=== PATIENT | female | born 1965 | race Caucasian/White ===

== ENCOUNTER 2017-03-05 06:01 | Emergency (ER) | payer OTHER ==
[~2017-03-05] VITALS: Ht 167.6 cm; Wt 72.0 kg
[2017-03-05] MEDS ORDERED: SODIUM CHLOR 0.9% 1000 ML INJ 1,000 ML IV ONE ×2 (06:17→07:30)
[2017-03-05 06:18] VITALS: BP 124/65; PULSE 79; RESP 16; TEMP 98.2; O2SAT 100
[2017-03-05] MEDS ORDERED: ONDANSETRON HCL 4 MG/2 ML VIAL IVP ONE (06:30)
[2017-03-05] MEDS ORDERED: SODIUM CHLORIDE 0.9% FLUSH 10 ML FLUSH IVF PRN (06:30)
--- NOTE | 2017-03-05 06:32 | PD ---
HPI Chief Complaint: Fall Time Seen by Provider: 06:17 Travel History International Travel<30 days: No Contact w/Intl Traveler<30days: No Traveled to known affect area: No History of Present Illness HPI 52-year-old female patient with history of recent evaluation for abdominal bloating, scheduled for colonoscopy this morning, has been taking laxatives and was post to take GoLYTELY this morning, has been having nausea, vomiting, and diarrhea multiple times last night, this morning had an apparent syncopal episode hitting her head on the tile. She is not sure what happened. She called EMS. She complains of headache, but denies any vomiting, chest pains, shortness of breath, or other symptoms. When EMS arrived, they noted that on her counter she had written several goodbye notes and a will. They had considered [place] acting her but Police Department decided not to. On further questioning of the issue, patient states that she simply was trying to be a good mother, wanted to make sure that her will was in order and her personal business was in order before she went for the procedure. She denies any suicide or homicidal ideation. According to EMS , she appears somewhat somnolent but she is currently awake and oriented. She denies any ingestions. Modifying Factors: None Associated Signs & Symptoms: Nausea, vomiting, diarrhea, abdominal bloating, syncope, possible head injury Risk Factors: None PFSH Past Medical History Immunizations Current: Yes Tetanus Vaccination: Unknown Influenza Vaccination: No ?: Unknown Social History Alcohol Use: No Tobacco Use: No Substance Use: No Allergies-Medications (Allergen,Severity, Reaction): Coded Allergies: No Known Allergies (Verified Allergy, Unknown, 03/05/17) Reported Meds & Prescriptions Reported Meds & Active Scripts Active No Active Prescriptions or Reported Medications Review of Systems Except as stated in HPI: all other systems reviewed are Neg Physical Exam Narrative GENERAL: Well-developed middle age white female patient currently in mild distress. Awake, alert, oriented 3. SKIN: Focused skin assessment warm/dry. HEAD: Atraumatic. Normocephalic. EYES: Pupils equal and round. No scleral icterus. No injection or drainage. ENT: No nasal bleeding or discharge. Mucous membranes pink and moist. NECK: Trachea midline. No JVD. In c-collar. CARDIOVASCULAR: Regular rate and rhythm. No murmur appreciated. RESPIRATORY: No accessory muscle use. Clear to auscultation. Breath sounds equal bilaterally. GASTROINTESTINAL: Abdomen soft, non-tender, nondistended. Hepatic and splenic margins not palpable. MUSCULOSKELETAL: No obvious deformities. No clubbing. No cyanosis. No edema. NEUROLOGICAL: Awake and alert. No obvious cranial nerve deficits. Motor grossly within normal limits. Normal speech. PSYCHIATRIC: Appropriate mood and affect; insight and judgment normal. Data Data Last Documented VS Vital Signs Date Time Temp Pulse Resp B/P (MAP) Pulse Ox O2 Delivery O2 Flow Rate FiO2 03/05/17 06:58 16 03/05/17 06:18 98.2 79 124/65 (84) 100 Orders Orders Electrocardiogram (03/05/17 06:17) Complete Blood Count With Diff (03/05/17 06:17) Comprehensive Metabolic Panel (03/05/17 06:17) Magnesium (Mg) (03/05/17 06:17) Ckmb (Isoenzyme) Profile (03/05/17 06:17) Troponin I (03/05/17 06:17) Act Partial Throm Time (Ptt) (03/05/17 06:17) Prothrombin Time / Inr (Pt) (03/05/17 06:17) Urinalysis - C+S If Indicated (03/05/17 06:17) Chest, Single Ap (03/05/17 06:17) Ct Brain W/O Iv Contrast(Rout) (03/05/17 06:17) Ct Cerv Spine W/O Contrast (03/05/17 06:17) Blood Glucose (03/05/17 06:17) Ecg Monitoring (03/05/17 06:17) Iv Access Insert/Monitor (03/05/17 06:17) Oximetry (03/05/17 06:17) Ondansetron Inj (Zofran Inj) (03/05/17 06:30) Sodium Chloride 0.9% Flush (Ns Flush) (03/05/17 06:30) Sodium Chlor 0.9% 1000 Ml Inj (Ns 1000 M (03/05/17 06:17) Drug Screen, Random Urine (03/05/17 06:17) Alcohol (Ethanol) (03/05/17 06:17) Remove Cervical Collar (03/05/17 06:50) Orthostatic Vital Signs (03/05/17 07:00) Labs Laboratory Tests Test 03/05/17 06:50 [facility] Medical Decision Making Medical Screen Exam Complete: Yes Emergency Medical Condition: Yes Medical Record Reviewed: Yes Differential Diagnosis Syncope, nausea, vomiting, diarrhea: dehydration versus metabolic issues versus gastroenteritis versus medication effect versus dysrhythmias Narrative Course Patient denies any suicidal ideation and states that she simply was trying to get her paperwork in order and her wishes in order before the procedure. Lab work, CAT scan of the brain and C-spine, was ordered for the patient for further evaluation. IV fluids given in the ER. Physician Communication Physician Communication Case is signed out to oncoming physician, Dr. Figueroa, at 7 AM pending workup. Disposition based on workup. Diagnosis Primary Impression: Syncope Additional Impression: Nausea vomiting and diarrhea Scripts No Active Prescriptions or Reported Meds Condition: Stable Elli Samano MD Mar 05, 2017 06:32
--- NOTE | 2017-03-05 06:42 | RADRPT ---
EXAM DATE/TIME: 03/05/2017 06:33 [facility] COMPARISON: No previous studies available for comparison. INDICATIONS : Trauma, fall. RADIATION DOSE: 31.78 CTDIvol (mGy) MEDICAL HISTORY : None SURGICAL HISTORY : None. ENCOUNTER: Initial ACUITY: 1 day PAIN SCALE: 1/10 LOCATION: cranial TECHNIQUE: Multiple contiguous axial images were obtained of the head. Using automated exposure control and adj ustment of the mA and/or kV according to patient size, radiation dose was kept as low as reasonably a chievable to obtain optimal diagnostic quality images. DICOM format image data is available electro nically for review and comparison. FINDINGS: CEREBRUM: The ventricles are normal. No evidence of midline shift, mass lesion, hemorrhage or acute infarction . No extra-axial fluid collections are seen. POSTERIOR FOSSA: The cerebellum and brainstem are intact. The 4th ventricle is midline. The cerebellopontine angle i s unremarkable. EXTRACRANIAL: The visualized portion of the orbits is intact. SKULL: The calvaria is intact. No evidence of skull fracture. CONCLUSION: No acute abnormality is identified. Igor Seals MD on March 05, 2017 at 6:39 Board Certified Radiologist. This report was verified electronically.
--- NOTE | 2017-03-05 06:47 | RADRPT ---
EXAM DATE/TIME: 03/05/2017 06:33 [facility] COMPARISON: No previous studies available for comparison. INDICATIONS : Trauma, fall. RADIATION DOSE: 19.36 CTDIvol (mGy) MEDICAL HISTORY : None SURGICAL HISTORY : None. ENCOUNTER: Initial ACUITY: 1 day PAIN SCALE: 1/10 LOCATION: neck TECHNIQUE: Volumetric scanning of the cervical spine was performed. Multiplanar reconstructions in the sagittal, coronal and oblique axial planes were performed. Using automated exposure control and adjustment o f the mA and/or kV according to patient size, radiation dose was kept as low as reasonably achievable to obtain optimal diagnostic quality images. DICOM format image data is available electronically f or review and comparison. FINDINGS: There is normal sagittal spine alignment of the cervical spine. No anterolisthesis or retrolisthesis is present. The atlantoaxial relationship is within normal limits. There is no prevertebral soft tiss ue swelling present. No fracture or dislocation is identified. There is degenerative disc disease at C5-C6 and C6-C7. There is a 17 mm hypodense left thyroid nodule. Otherwise, the visualized portions of the posterior f sam, paraspinous soft tissues, and upper lung zones demonstrate no acute abnormality. CONCLUSION: 1. No acute cervical spine abnormality is identified. There is degenerative disc disease at C5-C6 and C6-C7. 2. There is a 17 mm left thyroid nodule. Consider followup elective thyroid ultrasound for further ch aracterization when patient condition permits. Igor Seals MD on March 05, 2017 at 6:43 Board Certified Radiologist. This report was verified electronically.
--- NOTE | 2017-03-05 06:56 | RADRPT ---
EXAM DATE/TIME: 03/05/2017 06:42 [facility] COMPARISON: No previous studies available for comparison. INDICATIONS : Chest pain with nausea and vomiting MEDICAL HISTORY : None. SURGICAL HISTORY : None. ENCOUNTER: Initial ACUITY: 1 day PAIN SCORE: 5/10 LOCATION: Bilateral chest FINDINGS: Portable AP view of the chest demonstrates a normal-sized cardiac silhouette. No effusion, consolidat ion, or pneumothorax is visualized. The bones and soft tissues demonstrate no acute abnormality. Ther e is a linear density overlying the left inferior hemithorax that is of uncertain etiology. CONCLUSION: No acute finding is identified. Igor Seals MD on March 05, 2017 at 6:53 Board Certified Radiologist. This report was verified electronically.
[2017-03-05 06:58] VITALS: RESP 16
--- NOTE | 2017-03-05 07:09 | PD ---
Physical Exam Date Seen by Provider: Mar 05, 2017 Time Seen by Provider: 07:08 Narrative The patient is a 52-year-old female was initially evaluated by the previous physician. Please refer to the initial history, physical, diagnostic evaluation , and treatment modality plan. The patient was signed out at 7 AM laboratory evaluation pending. Data Data Last Documented VS Vital Signs Date Time Temp Pulse Resp B/P (MAP) Pulse Ox O2 Delivery O2 Flow Rate FiO2 03/05/17 07:28 72 115/65 (82) 83 121/69 (86) 92 133/78 (96) 03/05/17 06:58 16 03/05/17 06:18 98.2 100 Orders Orders Electrocardiogram (03/05/17 06:17) Complete Blood Count With Diff (03/05/17 06:17) Comprehensive Metabolic Panel (03/05/17 06:17) Magnesium (Mg) (03/05/17 06:17) Ckmb (Isoenzyme) Profile (03/05/17 06:17) Troponin I (03/05/17 06:17) Act Partial Throm Time (Ptt) (03/05/17 06:17) Prothrombin Time / Inr (Pt) (03/05/17 06:17) Urinalysis - C+S If Indicated (03/05/17 06:17) Chest, Single Ap (03/05/17 06:17) Ct Brain W/O Iv Contrast(Rout) (03/05/17 06:17) Ct Cerv Spine W/O Contrast (03/05/17 06:17) Blood Glucose (03/05/17 06:17) Ecg Monitoring (03/05/17 06:17) Iv Access Insert/Monitor (03/05/17 06:17) Oximetry (03/05/17 06:17) Ondansetron Inj (Zofran Inj) (03/05/17 06:30) Sodium Chloride 0.9% Flush (Ns Flush) (03/05/17 06:30) Sodium Chlor 0.9% 1000 Ml Inj (Ns 1000 M (03/05/17 06:17) Drug Screen, Random Urine (03/05/17 06:17) Alcohol (Ethanol) (03/05/17 06:17) Remove Cervical Collar (03/05/17 06:50) Orthostatic Vital Signs (03/05/17 07:00) Sodium Chlor 0.9% 1000 Ml Inj (Ns 1000 M (03/05/17 07:30) Labs Laboratory Tests Test 03/05/17 06:50 03/05/17 07:18 White Blood Count 10.4 TH/MM3 Red Blood Count 4.73 MIL/MM3 Hemoglobin 13.7 GM/DL Hematocrit 40.8 % Mean Corpuscular Volume 86.3 FL Mean Corpuscular Hemoglobin 28.9 PG Mean Corpuscular Hemoglobin Concent 33.5 % Red Cell Distribution Width 13.6 % Platelet Count 245 TH/MM3 Mean Platelet Volume 7.9 FL Neutrophils (%) (Auto) 87.2 % Lymphocytes (%) (Auto) 7.9 % Monocytes (%) (Auto) 4.1 % Eosinophils (%) (Auto) 0.4 % Basophils (%) (Auto) 0.4 % Neutrophils # (Auto) 9.1 TH/MM3 Lymphocytes # (Auto) 0.8 TH/MM3 Monocytes # (Auto) 0.4 TH/MM3 Eosinophils # (Auto) 0.0 TH/MM3 Basophils # (Auto) 0.0 TH/MM3 CBC Comment DIFF FINAL Differential Comment Prothrombin Time 11.4 SEC Prothromb Time International Ratio 1.0 RATIO Activated Partial Thromboplast Time 22.8 SEC Blood Urea Nitrogen 10 MG/DL Creatinine 0.60 MG/DL Random Glucose 111 MG/DL Total Protein 8.0 GM/DL Albumin 3.7 GM/DL Calcium Level 9.0 MG/DL Magnesium Level 2.5 MG/DL Alkaline Phosphatase 75 U/L Aspartate Amino Transf (AST/SGOT) 22 U/L Alanine Aminotransferase (ALT/SGPT) 25 U/L Total Bilirubin 0.5 MG/DL Sodium Level 139 MEQ/L Potassium Level 3.7 MEQ/L Chloride Level 105 MEQ/L Carbon Dioxide Level 23.9 MEQ/L Anion Gap 10 MEQ/L Estimat Glomerular Filtration Rate 104 ML/MIN Total Creatine Kinase 36 U/L Troponin I LESS THAN 0.02 NG/ML Ethyl Alcohol Level LESS THAN 3 MG/DL Urine Color RED Urine Turbidity HAZY Urine pH 5.5 Urine Specific [place] 1.024 Urine Protein 30 mg/dL Urine Glucose (UA) TRACE mg/dL Urine Ketones 10 mg/dL Urine Occult Blood LARGE Urine Nitrite NEG Urine Bilirubin NEG Urine Urobilinogen LESS THAN 2.0 MG/DL Urine Leukocyte Esterase SMALL Urine RBC 16 /hpf Urine WBC 7 /hpf Urine Squamous Epithelial Cells 1 /hpf Urine Bacteria RARE /hpf Urine Hyaline Casts 10 /lpf Urine Mucus MANY /lpf Microscopic Urinalysis Comment CULT NOT INDICATED MDM Medical Record Reviewed: Yes Supervised Visit with ARISTIDES: No Interpretation(s) Last Impressions Head CT 03/05/17616 Signed Impressions: Service Date/Time: Sunday, March 05, 2017 06:33 - CONCLUSION: No acute abnormality is identified. Igor Seals MD Chest X-Ray 03/05/17616 Signed Impressions: Service Date/Time: Sunday, March 05, 2017 06:42 - CONCLUSION: No acute finding is identified. Igor Seals MD Cervical Spine CT 03/05/17616 Signed Impressions: Service Date/Time: Sunday, March 05, 2017 06:33 - CONCLUSION: 1. No acute cervical spine abnormality is identified. There is degenerative disc disease at C5-C6 and C6-C7. 2. There is a 17 mm left thyroid nodule. Consider followup elective thyroid ultrasound for further characterization when patient condition permits. Igor Seals MD Laboratory Tests Test 03/05/17 06:50 03/05/17 07:18 White Blood Count 10.4 TH/MM3 Red Blood Count 4.73 MIL/MM3 Hemoglobin 13.7 GM/DL Hematocrit 40.8 % Mean Corpuscular Volume 86.3 FL Mean Corpuscular Hemoglobin 28.9 PG Mean Corpuscular Hemoglobin Concent 33.5 % Red Cell Distribution Width 13.6 % Platelet Count 245 TH/MM3 Mean Platelet Volume 7.9 FL Neutrophils (%) (Auto) 87.2 % Lymphocytes (%) (Auto) 7.9 % Monocytes (%) (Auto) 4.1 % Eosinophils (%) (Auto) 0.4 % Basophils (%) (Auto) 0.4 % Neutrophils # (Auto) 9.1 TH/MM3 Lymphocytes # (Auto) 0.8 TH/MM3 Monocytes # (Auto) 0.4 TH/MM3 Eosinophils # (Auto) 0.0 TH/MM3 Basophils # (Auto) 0.0 TH/MM3 CBC Comment DIFF FINAL Differential Comment Prothrombin Time 11.4 SEC Prothromb Time International Ratio 1.0 RATIO Activated Partial Thromboplast Time 22.8 SEC Blood Urea Nitrogen 10 MG/DL Creatinine 0.60 MG/DL Random Glucose 111 MG/DL Total Protein 8.0 GM/DL Albumin 3.7 GM/DL Calcium Level 9.0 MG/DL Magnesium Level 2.5 MG/DL Alkaline Phosphatase 75 U/L Aspartate Amino Transf (AST/SGOT) 22 U/L Alanine Aminotransferase (ALT/SGPT) 25 U/L Total Bilirubin 0.5 MG/DL Sodium Level 139 MEQ/L Potassium Level 3.7 MEQ/L Chloride Level 105 MEQ/L Carbon Dioxide Level 23.9 MEQ/L Anion Gap 10 MEQ/L Estimat Glomerular Filtration Rate 104 ML/MIN Total Creatine Kinase 36 U/L Troponin I LESS THAN 0.02 NG/ML Ethyl Alcohol Level LESS THAN 3 MG/DL Urine Color RED Urine Turbidity HAZY Urine pH 5.5 Urine Specific [place] 1.024 Urine Protein 30 mg/dL Urine Glucose (UA) TRACE mg/dL Urine Ketones 10 mg/dL Urine Occult Blood LARGE Urine Nitrite NEG Urine Bilirubin NEG Urine Urobilinogen LESS THAN 2.0 MG/DL Urine Leukocyte Esterase SMALL Urine RBC 16 /hpf Urine WBC 7 /hpf Urine Squamous Epithelial Cells 1 /hpf Urine Bacteria RARE /hpf Urine Hyaline Casts 10 /lpf Urine Mucus MANY /lpf Microscopic Urinalysis Comment CULT NOT INDICATED Differential Diagnosis Differential diagnosis includes orthostatic hypotension, dehydration, electrolyte abnormality, vasovagal syncope, arrhythmia, gastroenteritis, acute kidney injury. Narrative Course The patient was initially evaluated by the previous physician. Please refer to initial history, physical, diagnostic evaluation, and treatment modality plan. The patient was signed out at 7 AM laboratory evaluation pending. The patient states that she drank 2 bottles of laxative and took 2 suppositories, however, was unable to do the 2 enemas for her prep. The patient states she was to undergo colonoscopy by Dr. Bernard today. The patient's orthostatic vital signs were unremarkable. Urine did look concentrated, therefore, the patient was administered a second liter of IV fluids. CT the cervical spine was negative for fracture, therefore, the cervical collar was removed. The patient' s labs were noted, 10 ketones and UA, moderate blood, otherwise unremarkable. Therefore, I'll call was placed to the patient's supervisor rolling room at 7:54 AM. I discussed the patient with Dr. Medley who stated he will call the office and they will try to fit the patient in to have the colonoscopy done today. The patient will be discharged with a friend who will drive her to the outpatient endoscopy Center. This patient is stable for outpatient follow-up. Diagnosis Primary Impression: Syncope Qualified Codes: R55 - Syncope and collapse Additional Impression: Nausea vomiting and diarrhea Patient Instructions: General Instructions Additional Instruction: Please provide the patient a copy of her labs at discharge. Follow-up with the gastroenterology center today for your colonoscopy. Return if symptoms worsen or progress. Med/Other Pt SpecificInfo: No Change to Meds Scripts No Active Prescriptions or Reported Meds Disposition: 01 DISCHARGE HOME Condition: Stable Enrike Figueroa MD Mar 05, 2017 07:09
[2017-03-05 07:15] LABS: APTT (PATIENT) 22.8 SEC (24.3-30.1); PROTHROMBIN TIME - PATIENT 11.4 SEC (9.8-11.6)
[2017-03-05 07:16] LABS: AUTOMATED NEUTROPHIL # 9.1 TH/MM3 (1.8-7.7); BASOPHIL % 0.4 % (0.0-2.0); EOSINOPHIL % 0.4 % (0.0-4.0); HEMATOCRIT 40.8 % (35.0-46.0); HEMO FLAGS DIFF FINAL; LYMPH % 7.9 % (9.0-44.0); LYMPHOCYTE # 0.8 TH/MM3 (1.0-4.8); MEAN CELL VOLUME 86.3 FL (80.0-100.0); MEAN CORPUSCULAR HEMOGLOBIN 28.9 PG (27.0-34.0); MEAN CORPUSCULAR HGB CONC 33.5 % (32.0-36.0); MONO % 4.1 % (0.0-8.0); NEUT % 87.2 % (16.0-70.0); PLATELET COUNT 245 TH/MM3 (150-450); RED BLOOD COUNT 4.73 MIL/MM3 (4.00-5.30); RED CELL DISTRIBUTION WIDTH 13.6 % (11.6-17.2); WHITE BLOOD COUNT 10.4 TH/MM3 (4.0-11.0)
[2017-03-05 07:28] VITALS: BP_SYST 115; BP_SYST 121; BP_SYST 133; BP_DIAS 65; BP_DIAS 69; BP_DIAS 78
[2017-03-05 07:31] LABS: ALT (GPT) 25 U/L (10-53); ANION GAP 10 MEQ/L (5-15); AST (GOT) 22 U/L (15-37); BICARBONATE 23.9 MEQ/L (21.0-32.0); BLOOD UREA NITROGEN 10 MG/DL (7-18); CHLORIDE 105 MEQ/L (98-107); GLOMERULAR FILTRATION RATE 104 ML/MIN (>89); MAGNESIUM 2.5 MG/DL (1.5-2.5); POTASSIUM 3.7 MEQ/L (3.5-5.1); SODIUM (NA) 139 MEQ/L (136-145)
[2017-03-05 07:35] LABS: ALKALINE PHOSPHATASE 75 U/L (45-117); TOTAL BILIRUBIN ADULT 0.5 MG/DL (0.2-1.0)
[2017-03-05 07:48] LABS: ALCOHOL LESS THAN 3 MG/DL (0-5); CREATINE KINASE 36 U/L (26-192)
[2017-03-05 07:49] LABS: BACTERIA, URINE RARE /hpf; BLOOD, URINE LARGE (NEG); COMMENT (UR) CULT NOT INDICATED; CULTURE IF INDICATED CULT NOT INDICATED; GLUCOSE,URINE TRACE mg/dL (NEG); HYALINE CAST, URINE 10 /lpf (RARE); KETONE, URINE 10 mg/dL (NEG); MUCUS URINE MANY /lpf (OCC); NITRITE,URINE NEG (NEG); PH, URINE 5.5 (5.0-8.5); SQUAMOUS EPITHELIAL CELL URINE 1 /hpf (0-5)
[2017-03-05 07:50] LABS: URINE COLOR RED (YELLW/STRAW)
[2017-03-05 08:51] VITALS: BP 133/78
--- NOTE | 2017-03-05 15:08 | EKG ---
Date Performed: 03/05/2017 Time Performed: 06:50:19 PTAGE: 52 years EKG: Sinus rhythm NORMAL ECG NO PREVIOUS TRACING DOCTOR: Zbigniew Hernandez Interpretating Date/Time 03/05/2017 15:06:22
== END 2017-03-05 08:53 | disposition home or self-care (01) ==
LOC: NEPC 06:01
DX: R55 Syncope and collapse (principal); R11.2 Nausea with vomiting, unspecified; R19.7 Diarrhea, unspecified; R14.0 Abdominal distension (gaseous); R51 Headache
CPT/HCPCS: 70450; 71010; 72125; 80053; 80307; 81001; 82550; 83735; 84484; 85025; 85610; 85730; 93005; 96361; 96374; 99285; J2405; J7030

== ENCOUNTER 2017-03-08 12:16 | Inpatient (IN) | payer OTHER ==
[~2017-03-08] VITALS: Ht 160 cm; Wt 86.8 kg
[2017-03-08 12:30] VITALS: BP 127/80; PULSE 77; RESP 19; TEMP 96.4; O2SAT 99
[2017-03-08] MEDS ORDERED: SODIUM CHLORIDE 0.9% FLUSH 10 ML FLUSH IV FLUSH PRN (13:00)
[2017-03-08] MEDS ORDERED: NALOXONE HCL 0.4 MG/ML AMP IV PRN (13:00)
[2017-03-08] MEDS ORDERED: MAGNESIUM HYDROXIDE SUSP 30 ML CUP PO PRN (13:00)
[2017-03-08] MEDS ORDERED: ONDANSETRON HCL 4 MG/2 ML VIAL IVP PRN (13:00)
[2017-03-08] MEDS ORDERED: ACETAMINOPHEN 325 MG TAB PO PRN (13:00)
[2017-03-08] MEDS ORDERED: METR500T10 PO ×2 (13:28)
[2017-03-08] MEDS ORDERED: PANT40TA3 PO ×2 (13:29)
--- NOTE | 2017-03-08 13:55 | RADRPT ---
EXAM DATE/TIME: 03/08/2017 13:09 [facility] COMPARISON: CHEST SINGLE AP, March 05, 2017, 6:42. INDICATIONS : Short of breath. MEDICAL HISTORY : None. SURGICAL HISTORY : None. ENCOUNTER: Initial ACUITY: 1 day PAIN SCORE: 0/10 LOCATION: Bilateral cranial FINDINGS: A single view of the chest demonstrates the lungs to be symmetrically aerated without evidence of mas s, infiltrate or effusion. The cardiomediastinal contours are unremarkable. Osseous structures are intact. CONCLUSION: No acute disease. Jerardo Swanson MD on March 08, 2017 at 13:53 Board Certified Radiologist. This report was verified electronically.
[2017-03-08] MEDS: 1/2 NS + KCL 20 MEQ INJ 1,000 ML IV SCH (14:43)
--- NOTE | 2017-03-08 15:07 | RADRPT ---
EXAM DATE/TIME: 03/08/2017 13:02 [facility] COMPARISON: No previous studies available for comparison. INDICATIONS : Obstruction. MEDICAL HISTORY : Colon cancer neoplasm just found. endoscopy and colonoscopy SURGICAL HISTORY : partial hysterectomy ENCOUNTER: Initial ACUITY: 1 day PAIN SCORE: 8/10 LOCATION: Bilateral abdomen FINDINGS: Supine views of the abdomen were performed. The abdominal bowel gas pattern is normal. No abnormal masses, calcifications, or organomegaly is seen. The osseous structures are unremarkable. CONCLUSION: Normal bowel gas pattern. Kameron Abdi Jr., MD on March 08, 2017 at 15:04 Board Certified Radiologist. This report was verified electronically.
[2017-03-08] MEDS ORDERED: TRAM50TA PO ×2 (15:10)
[2017-03-08] MEDS ORDERED: MAGNESIUM CITRATE SOLN 300 ML BTL PO ONE ×2 (15:15→16:15)
[2017-03-08 16:00] VITALS: BP 100/60; PULSE 64; RESP 18; TEMP 97.7; O2SAT 94
--- NOTE | 2017-03-08 16:16 | HHI.HP ---
HPI Service [facility] Primary Care Physician Dr. Igor Bhandari Admission Diagnosis Obstructing colon mass Chief Complaint: Abdominal distension and nausea Travel History International Travel<30 Days: No Contact w/Intl Traveler <30 Da: No Traveled to Known Affected Are: No History of Present Illness Mrs. Leonard is a pleasant 52 y/o female who was recently diagnosed with adenocarcinoma of the colon. Pt had been having increasing abdominal pain, bloating/distension and some rectal bleeding for about a week. She was seen by her PCP last week and was sent for imaging studies. Pt was started on Flagyl for a presumed gastroenteritis per the patient. She was then referred to Gastroenterology who evaluated the patient with EGD/colonoscopy on 03/05/17 which noted acute gastritis and 5cm x 5cm circumferential abnormal mucosa was found at the splenic flexure, the mucosa was congested, edematous, erythematous , friable, and oozing blood. Pathology with invasive moderately differentiated colonic adenocarcinoma. Pt was then sent to see General Surgery and was evaluated by today. She states that since the colonoscopy she has had persistent bloating, abdominal pain and nausea. She has not had any BMs since the colonoscopy but has passed some bloody mucous. She has not had any vomiting or fevers. She denies any chest pain, SOB, dizziness, weakness, or palpitations. She had a KUB at admission which noted a normal bowel gas pattern. Review of Systems Constitutional: DENIES: Fever, Chills Eyes: DENIES: Vision loss Respiratory: DENIES: Shortness of breath Cardiovascular: DENIES: Chest pain, Palpitations, Lower Extremity Edema Gastrointestinal: COMPLAINS OF: Abdominal pain, Bloody stools, Nausea, See HPI , DENIES: Vomiting Genitourinary: DENIES: Urinary frequency, Hematuria Musculoskeletal: DENIES: Neck pain Integumentary: DENIES: Rash Neurologic: DENIES: Headache Psychiatric: DENIES: Confusion Past Family Social History Past Medical History Adenocarcinoma of the colon Gastritis Thyroid disorder unspecified, recently diagnosed and not currently on any medication Past Surgical History EGD/colonoscopy 03/05/17 --> Acute gastritis and 5cm x 5cm circumferential abnormal mucosa was found at the splenic flexure, the mucosa was congested, edematous, erythematous, friable, and oozing blood. Pathology with invasive moderately differentiated colonic adenocarcinoma. Partial hysterectomy Reported Medications Tramadol (Tramadol HCl) 50 Mg Tab 50 Mg PO Q12HR PRN Pantoprazole (Pantoprazole Sodium) 40 Mg Tab 40 Mg PO DAILY Metronidazole 500 Mg Tab 500 Mg PO TID Allergies: Coded Allergies: No Known Allergies (Verified Allergy, Unknown, 03/05/17) Family History No family hx of GI related malignancy Social History Remote hx of tobacco use, smoked for about 3-4 years sporadically and quit over 30 years ago Denies any regular alcohol use Pt works as a server manager at a local [employer] Physical Exam Vital Signs Vital Signs Date Time Temp Pulse Resp B/P (MAP) Pulse Ox O2 Delivery O2 Flow Rate FiO2 03/08/17 12:30 96.4 77 19 127/80 (96) 99 Physical Exam GENERAL: This is a well-nourished, well-developed patient, in no apparent distress. SKIN: No rashes, ecchymoses or lesions. Cool and dry. HEENT: Atraumatic. Normocephalic. No temporal or scalp tenderness. No scleral icterus. Airway patent. NECK: Trachea midline, supple, nontender. CARDIO: Regular. RESP: CTA bilaterally. No wheezes, rales, or rhonchi. ABD: Minimal BS, distended, diffusely tender. EXT: Extremities without clubbing, cyanosis, or edema. NEURO: Awake and alert. Motor and sensory grossly within normal limits. Normal speech. Laboratory Laboratory Tests Test 03/08/17 15:47 White Blood Count 5.2 TH/MM3 Red Blood Count 4.19 MIL/MM3 Hemoglobin 12.0 GM/DL Hematocrit 36.4 % Mean Corpuscular Volume 86.8 FL Mean Corpuscular Hemoglobin 28.7 PG Mean Corpuscular Hemoglobin Concent 33.1 % Red Cell Distribution Width 13.6 % Platelet Count 223 TH/MM3 Mean Platelet Volume 8.2 FL Neutrophils (%) (Auto) 65.9 % Lymphocytes (%) (Auto) 26.2 % Monocytes (%) (Auto) 6.4 % Eosinophils (%) (Auto) 1.1 % Basophils (%) (Auto) 0.4 % Neutrophils # (Auto) 3.5 TH/MM3 Lymphocytes # (Auto) 1.4 TH/MM3 Monocytes # (Auto) 0.3 TH/MM3 Eosinophils # (Auto) 0.1 TH/MM3 Basophils # (Auto) 0.0 TH/MM3 CBC Comment DIFF FINAL Differential Comment Imaging Last Impressions Chest X-Ray 03/08/17 1255 Signed Impressions: Service Date/Time: February 13:09 - CONCLUSION: No acute disease. Jerardo Swanson MD Abdomen X-Ray 03/08/17 0000 Signed Impressions: Service Date/Time: , March 08, 2017 13:02 - CONCLUSION: Normal bowel gas pattern. Kameron Abdi Jr., MD Septic Shock Reassessment Heart: Regular rate and rhythm Lungs: Clear Skin: Warm Caprini VTE Risk Assessment Caprini VTE Risk Assessment: No/Low Risk (score <= 1) Caprini Risk Assessment Model Point Value = 1 Point Value = 2 Point Value = 3 Point Value = 5 Age 41-60 Minor surgery BMI > 25 kg/m2 Swollen legs Varicose veins or History of unexplained or recurrent spontaneous Oral contraceptives or hormone replacement Sepsis (< 1 month) Serious lung disease, including pneumonia (< 1 month) Abnormal pulmonary function Acute myocardial infarction Congestive heart failure (< 1 month) History of inflammatory bowel disease Medical patient at bed rest Age 61-74 Arthroscopic surgery Major open surgery (> 45 min) Laparoscopic surgery (> 45 min) Malignancy Confined to bed (> 72 hours) Immobilizing plaster cast Central venous access Age >= 75 History of VTE Family history of VTE Factor V Leiden Prothrombin [id number] Lupus anticoagulant Anticardiolipin antibodies Elevated serum homocysteine Heparin-induced thrombocytopenia Other congenital or acquired thrombophilia Stroke (< 1 month) Elective arthroplasty Hip, pelvis, or leg fracture Acute spinal cord injury (< 1 month) Prophylaxis Regimen Total Risk Factor Score Risk Level Prophylaxis Regimen 0-1 Low Early ambulation 2 Moderate Order ONE of the following: *Sequential Compression Device (SCD) *Heparin 5000 units SQ BID 3-4 Higher Order ONE of the following medications: *Heparin 5000 units SQ TID *Enoxaparin/Lovenox 40 mg SQ daily (WT < 150 kg, CrCl > 30 mL/min) *Enoxaparin/Lovenox 30 mg SQ daily (WT < 150 kg, CrCl > 10-29 mL/min) *Enoxaparin/Lovenox 30 mg SQ BID (WT < 150 kg, CrCl > 30 mL/min) AND/OR *Sequential Compression Device (SCD) 5 or more Highest Order ONE of the following medications: *Heparin 5000 units SQ TID (Preferred with Epidurals) *Enoxaparin/Lovenox 40 mg SQ daily (WT < 150 kg, CrCl > 30 mL/min) *Enoxaparin/Lovenox 30 mg SQ daily (WT < 150 kg, CrCl > 10-29 mL/min) *Enoxaparin/Lovenox 30 mg SQ BID (WT < 150 kg, CrCl > 30 mL/min) AND *Sequential Compression Device (SCD) Assessment and Plan Problem List: (1) Adenocarcinoma of colon ICD Codes: C18.9 - Malignant neoplasm of colon, unspecified Status: Acute Plan: - Pt is a 52 y/o female who was recently diagnosed with adenocarcinoma of the colon. - She had been having increasing abdominal pain, bloating/distension and some rectal bleeding for about a week. She was referred to Gastroenterology who evaluated the patient with EGD/colonoscopy on 03/05/17 which noted acute gastritis and 5cm x 5cm circumferential abnormal mucosa was found at the splenic flexure, the mucosa was congested, edematous, erythematous, friable, and oozing blood. Pathology with invasive moderately differentiated colonic adenocarcinoma. - Pt was then sent to see General Surgery and was evaluated by Dr. Castañeda today. - She has had persistent bloating, abdominal pain and nausea. She has not had any BMs since the colonoscopy but has passed some bloody mucous. - Pt was admitted for surgical intervention with General Surgery which is planned tentatively for tomorrow. - Zofran PRN - KUB at admission which noted a normal bowel gas pattern. - Pain control PRN - NPO after MN - Supportive Care - DVT prophylaxis Assessment and Plan Patient examined. Assessment and plan formulated with Giana Nicholson PA-C. I agree with the above. Physician Certification 2 Midnight Certification Type: Admission for Inpatient Services Order for Inpatient Services The services are ordered in accordance with Medicare regulations or non- Medicare payer requirements, as applicable. In the case of services not specified as inpatient-only, they are appropriately provided as inpatient services in accordance with the 2-midnight benchmark. Estimated LOS (days): 3 3 days is the estimated time the patient will need to remain in the hospital, assuming treatment plan goals are met and no additional complications. Post-Hospital Plan: Home Giana Nicholson Mar 08, 2017 16:16 Honorio Saenz DO Mar 10, 2017 22:41
[2017-03-08] MEDS ORDERED: HYDROmorphone HCL PF 1 MG/ML VIAL IV PUSH PRN (17:00)
[2017-03-08] MEDS ORDERED: ACETAMINOPHEN/HYDROcodone 325 MG/5 MG TAB PO PRN (17:00)
[2017-03-08] MEDS ORDERED: LORazepam 2 MG/ML VIAL IV PUSH PRN (17:00)
[2017-03-08 17:04] LABS: AUTOMATED NEUTROPHIL # 3.5 TH/MM3 (1.8-7.7); BASOPHIL % 0.4 % (0.0-2.0); EOSINOPHIL # 0.1 TH/MM3 (0-0.4); EOSINOPHIL % 1.1 % (0.0-4.0); HEMATOCRIT 36.4 % (35.0-46.0); HEMO FLAGS DIFF FINAL; LYMPH % 26.2 % (9.0-44.0); LYMPHOCYTE # 1.4 TH/MM3 (1.0-4.8); MEAN CELL VOLUME 86.8 FL (80.0-100.0); MEAN CORPUSCULAR HEMOGLOBIN 28.7 PG (27.0-34.0); MEAN CORPUSCULAR HGB CONC 33.1 % (32.0-36.0); MONO % 6.4 % (0.0-8.0); NEUT % 65.9 % (16.0-70.0); PLATELET COUNT 223 TH/MM3 (150-450); RED BLOOD COUNT 4.19 MIL/MM3 (4.00-5.30); RED CELL DISTRIBUTION WIDTH 13.6 % (11.6-17.2); WHITE BLOOD COUNT 5.2 TH/MM3 (4.0-11.0)
[2017-03-08] MEDS ORDERED: ONDANSETRON HCL 4 MG/2 ML VIAL IV PRN (17:30)
[2017-03-08 17:32] LABS: BICARBONATE 28.2 MEQ/L (21.0-32.0); MAGNESIUM 2.3 MG/DL (1.5-2.5); POTASSIUM 3.6 MEQ/L (3.5-5.1)
[2017-03-08 20:00] VITALS: BP 111/59; PULSE 72; RESP 20; TEMP 98.7; O2SAT 98
[2017-03-08] MEDS: SODIUM CHLORIDE 0.9% FLUSH 10 ML FLUSH IV FLUSH SCH (20:26)
[2017-03-08 23:33] VITALS: BP 113/58; PULSE 73; RESP 19; TEMP 97.8; O2SAT 97
[2017-03-09] VITALS (7 sets, daily range): BP systolic 73–113; BP diastolic 44–62; PULSE 66–84; RESP 11–20; TEMP 95.8–97.6; O2SAT 95–100
[2017-03-09] MEDS: 1/2 NS + KCL 20 MEQ INJ 1,000 ML IV SCH ×2 (00:55→12:50)
[2017-03-09] MEDS ORDERED: SODIUM CHLOR 0.9% 1000 ML INJ 1,000 ML IV ONE (03:15)
[2017-03-09 03:57] LABS: BICARBONATE 24.3 MEQ/L (21.0-32.0); POTASSIUM 3.9 MEQ/L (3.5-5.1)
[2017-03-09 05:33] LABS: BASOPHIL # 0.1 TH/MM3 (0-0.2); BASOPHIL % 1.9 % (0.0-2.0); EOSINOPHIL % 0.9 % (0.0-4.0); HEMATOCRIT 34.4 % (35.0-46.0); HEMO FLAGS DIFF FINAL; LYMPH % 19.2 % (9.0-44.0); LYMPHOCYTE # 1.1 TH/MM3 (1.0-4.8); MEAN CELL VOLUME 86.9 FL (80.0-100.0); MEAN CORPUSCULAR HEMOGLOBIN 29.3 PG (27.0-34.0); MEAN CORPUSCULAR HGB CONC 33.7 % (32.0-36.0); MONO % 7.1 % (0.0-8.0); NEUT % 70.9 % (16.0-70.0); PLATELET COUNT 210 TH/MM3 (150-450); RED BLOOD COUNT 3.96 MIL/MM3 (4.00-5.30); RED CELL DISTRIBUTION WIDTH 13.2 % (11.6-17.2); WHITE BLOOD COUNT 5.6 TH/MM3 (4.0-11.0)
[2017-03-09] MEDS: SODIUM CHLORIDE 0.9% FLUSH 10 ML FLUSH IV FLUSH SCH ×2 (09:00→20:06)
[2017-03-09] MEDS ORDERED: BUPIVACAINE LIPOSOME PF 1.3% 20 ML VIAL ONE (09:06)
[2017-03-09] MEDS ORDERED: DEXAMETHASONE SOD PHOS PF 10 MG/ML VIAL IV ONE (09:06)
[2017-03-09] MEDS ORDERED: MIDAZOLAM HCL 2 MG/2 ML VIAL ONE (11:21)
[2017-03-09] MEDS ORDERED: DEXAMETHASONE SOD PHOS 4 MG/ML VIAL ONE (11:21)
[2017-03-09] MEDS ORDERED: APREPITANT 40 MG CAP ONE (11:48)
[2017-03-09] MEDS ORDERED: LEVOFLOXACIN 500 MG PREMIX INJ 100 ML IV ONE (11:51)
[2017-03-09] MEDS ORDERED: metroNIDAZOLE 500 MG INJ 100 ML IV ONE (11:51)
[2017-03-09] MEDS ORDERED: NEOSTIGMINE 3 MG/3 ML SYR IV ONE (12:00)
[2017-03-09] MEDS ORDERED: BUPIVACAINE LIPOSOME PF 1.3% 20 ML VIAL NERV BLOCK ONE (12:00)
[2017-03-09] MEDS ORDERED: PHENYLEPH/NS 1000 MCG/10 ML SYR IV ONE (12:00)
[2017-03-09] MEDS ORDERED: LACTATED RINGER'S 1000 ML INJ 1,000 ML IV ONE (12:00)
[2017-03-09] MEDS ORDERED: ePHEDrine/NS 25 MG/5 ML SYR IV ONE (12:00)
[2017-03-09] MEDS ORDERED: ONDANSETRON HCL 4 MG/2 ML VIAL IV PUSH ONE (12:00)
[2017-03-09] MEDS ORDERED: PROPOFOL 200 MG/20 ML AMP IV ONE (12:00)
[2017-03-09] MEDS ORDERED: METHYLENE BLUE 10 MG/ML VIAL ONE (13:36)
[2017-03-09] MEDS ORDERED: DO NOT ADM ANY ANTICOAGULANT DRUGS PRN (15:10)
[2017-03-09] MEDS: D5-1/2 NS + KCL 20 MEQ INJ 1,000 ML IV SCH ×2 (15:12→20:06)
[2017-03-09] MEDS ORDERED: NALOXONE HCL 0.4 MG/ML AMP IV PRN (15:15)
[2017-03-09] MEDS ORDERED: Post-op Orders (for Pharmacy) MISC XX ONE (15:15)
[2017-03-09] MEDS ORDERED: MORPHINE SULFATE 4 MG/ML INJ IV PRN (15:15)
[2017-03-09] MEDS ORDERED: METOCLOPRAMIDE HCL 10 MG/2 ML VIAL IV PRN (15:15)
[2017-03-09] MEDS ORDERED: ONDANSETRON HCL 4 MG/2 ML VIAL IV PRN (15:15)
[2017-03-09] MEDS ORDERED: ZOLPIDEM TARTRATE 5 MG TAB PO PRN (15:15)
[2017-03-09] MEDS ORDERED: diphenhydrAMINE HCL 50 MG/ML VIAL IV PRN (15:15)
[2017-03-09] MEDS ORDERED: HYDROmorphone HCL PF 1 MG/ML VIAL IV PRN (15:15)
[2017-03-09] MEDS ORDERED: SODIUM CHLORIDE 0.9% FLUSH 10 ML FLUSH IV FLUSH PRN (15:15)
[2017-03-09] MEDS ORDERED: *HYDROmorphone PF 1 MG VIAL PERIprocedural Use ONLY ONE ×2 (15:18→15:35)
[2017-03-09] MEDS ORDERED: *PROMETHAZINE 25 MG/ML VIAL PERIprocedural use ONLY ONE (15:21)
--- NOTE | 2017-03-09 15:29 | PD.OP ---
cc: Darwin Valdez MD Operative Report Date of Surgery: Mar 09, 2017 Preoperative Diagnosis: Carcinoma the colon Postoperative Diagnosis: Carcinoma of the colon Procedure: Diagnostic laparoscopy with exploratory laparotomy and sigmoid colon resection with primary anastomosis. Anesthesia: General endotracheal Surgeon: Darwin Valdez Claim Rep(s): Phuong Menezes, MS3 Operation and Findings: Operative findings: The patient was found to have an inflamed, very thickened sigmoid colon which was found to be densely adherent to the anterior abdominal wall in the midline. The colonic mass was the only one palpable and was located in the very proximal sigmoid. No other gross abnormality's were noted on sports or laparotomy, particularly with no evidence of metastatic disease noted. Operative procedure: The patient brought to the operating room and after satisfactory general endotracheal anesthesia obtained, the patient underwent placement of a TA P block with Exparel. The abdomen was then prepped and draped in usual sterile fashion. A small incision was made just above the umbilicus and a 5 mm trocar inserted into the peritoneal cavity under direct visualization without problem. The abdomen was distended to 15 mmHg using carbon dioxide after which the camera was reinserted and visceral injury inspected for, with none being identified. Under direct visualization 2 other 5 ports were placed and the abdomen and an attempt was made to dissected the which was seen to be adherent to the anterior abdominal wall. At first it appeared to be small bowel but was found to be colon which was slightly distal to the colonic tumor. The tumor itself was adherent to the lateral peritoneal sidewall and at the junction with the pelvis and it was felt that there is greater potential for injury to the surrounding organs if laparoscopic procedure persisted in view of the dense adherence of both areas of bowel. Accordingly the laparoscopy was abandoned and a lower midline incision was made carried out sharply through the subcutaneous tissues tissue the cautery being used for hemostasis. Incision was deepened to the fascia which was then divided with the cautery down to the area where the bowel was densely adhered to the anterior abdominal wall. With careful sharp dissection the bowel was dissected free from the anterior abdominal wall where was seen to be grossly adherent to the peritoneum and the rectus muscle. After freeing the bowel could be seen that this was an area just distal to the tumor which was then dissected free from the lateral pelvic sidewall using the cautery. It was then obvious that this tumor was located in the proximal sigmoid colon with a very redundant sigmoid colon noted. At that point it was decided to proceed with sigmoid colectomy and accordingly the colon was mobilized medially using the cautery. The splenic flexure was mobilized using cautery as well to allow the colon be brought into close approximation without tension. A site for proximal and distal dissection was then selected and defect was created in the mesentery in both areas. The bowel was stapled with a MARCEL 75 green load stapler on both ends. The mesentery was then taken and a wedge section down to near the root of the sigmoid mesentery using the harmonic scalpel. The specimen was then sent for permanent pathology. The 2 ends were brought into close approximation and the antimesenteric staple lines were resected using the cautery. A MARCEL 75 green load stapler was passed down each limb secured and then fired creating a functional and end anastomosis in [id number] fashion. The enterotomy was checked and there was good hemostasis and the staple lines. This enterotomy was then closed with a TA 60 green load stapler. The stabilizer partially reinforced with interrupted 3-0 silk sutures. The anastomosis was checked and found to be with excellent blood supply, with no tension, and no hematoma noted. The mesenteric defect was closed with running 3-0 silk suture. The peritoneal cavity was then irrigated copiously with saline. Once again the perineal cavity was checked for metastatic disease with none being identified. The anastomosis was again checked and found to be in good position with no tension evident and no evidence of ischemia. The omentum was placed down over the viscera without problem. The fascia was then closed with a running #1 PDS suture. Skin was closed with a running 4-0 PDS subcuticular stitches for the larger incision and interrupted 4-0 PDS sutures from the smaller laparoscopic incisions. The incision was then reinforced with Steri-Strips. Sterile dressing was placed the patient was then awakened and taken from the operating room, in satisfactory condition, having tolerated the procedure without problem. Estimated blood loss was less than 100 mL's. The instrument, sponge, and needle counts were reported as being correct 2 at the end of procedure. Darwin Valdez MD Mar 09, 2017 15:29
[2017-03-09] MEDS: PANTOPRAZOLE SODIUM 40 MG VIAL IV SCH (16:00)
[2017-03-09] MEDS: ACETAMINOPHEN 1000 MG/100 ML VIAL IV SCH ×2 (16:00→23:14)
[2017-03-09] MEDS: KETOROLAC TROMETHAMINE 30 MG/ML (IVP) VIAL IVP SCH ×2 (16:00→20:05)
--- NOTE | 2017-03-09 16:19 | HHI.PR ---
Subjective Remarks Pt underwent diagnostic laparoscopy with exploratory laparotomy and sigmoid colon resection with primary anastomosis. Pt is seen post-operatively. Pain controlled. Objective Vitals Vital Signs Date Time Temp Pulse Resp B/P (MAP) Pulse Ox O2 Delivery O2 Flow Rate FiO2 03/09/17 15:45 89 16 104/57 (73) 100 Nasal Cannula 2 03/09/17 15:30 95 16 99/56 (70) 100 Nasal Cannula 2 03/09/17 15:15 88 16 94/51 (65) 100 Nasal Cannula 2 03/09/17 15:02 98.5 81 16 99/52 (68) 100 Nasal Cannula 2 03/09/17 08:00 97.6 75 13 99/55 (70) 98 03/09/17 06:06 70 94/55 (68) 95 03/09/17 04:07 97.2 66 19 87/54 (65) 95 03/09/17 02:44 96.9 84 19 73/44 (54) 98 03/08/17 23:33 97.8 73 19 113/58 (76) 97 03/08/17 20:00 98.7 72 20 111/59 (76) 98 03/09/17 03/09/17 03/10/17 15:00 23:00 07:00 Intake Total 1600 ml Output Total 650 ml Balance 950 ml Other 1600 ml Output Urine Total 550 ml Estimated Blood Loss 100 ml Result Diagram: 03/09/17 0508 03/09/17 0335 Other Results Laboratory Tests Test 03/08/17 15:47 03/09/17 03:35 03/09/17 05:08 White Blood Count 5.2 TH/MM3 5.6 TH/MM3 Red Blood Count 4.19 MIL/MM3 3.96 MIL/MM3 Hemoglobin 12.0 GM/DL 11.6 GM/DL Hematocrit 36.4 % 34.4 % Mean Corpuscular Volume 86.8 FL 86.9 FL Mean Corpuscular Hemoglobin 28.7 PG 29.3 PG Mean Corpuscular Hemoglobin Concent 33.1 % 33.7 % Red Cell Distribution Width 13.6 % 13.2 % Platelet Count 223 TH/MM3 210 TH/MM3 Mean Platelet Volume 8.2 FL 8.2 FL Neutrophils (%) (Auto) 65.9 % 70.9 % Lymphocytes (%) (Auto) 26.2 % 19.2 % Monocytes (%) (Auto) 6.4 % 7.1 % Eosinophils (%) (Auto) 1.1 % 0.9 % Basophils (%) (Auto) 0.4 % 1.9 % Neutrophils # (Auto) 3.5 TH/MM3 4.0 TH/MM3 Lymphocytes # (Auto) 1.4 TH/MM3 1.1 TH/MM3 Monocytes # (Auto) 0.3 TH/MM3 0.4 TH/MM3 Eosinophils # (Auto) 0.1 TH/MM3 0.0 TH/MM3 Basophils # (Auto) 0.0 TH/MM3 0.1 TH/MM3 CBC Comment DIFF FINAL DIFF FINAL Differential Comment Blood Urea Nitrogen 7 MG/DL 9 MG/DL Creatinine 0.51 MG/DL 0.65 MG/DL Random Glucose 92 MG/DL 111 MG/DL Calcium Level 8.8 MG/DL 8.8 MG/DL Magnesium Level 2.3 MG/DL Sodium Level 141 MEQ/L 142 MEQ/L Potassium Level 3.6 MEQ/L 3.9 MEQ/L Chloride Level 104 MEQ/L 109 MEQ/L Carbon Dioxide Level 28.2 MEQ/L 24.3 MEQ/L Anion Gap 9 MEQ/L 9 MEQ/L Estimat Glomerular Filtration Rate 126 ML/MIN 95 ML/MIN Imaging Last Impressions Chest X-Ray 03/08/17 1255 Signed Impressions: Service Date/Time: February 13:09 - CONCLUSION: No acute disease. Jerardo Swanson MD Abdomen X-Ray 03/08/17 0000 Signed Impressions: Service Date/Time: February 13:02 - CONCLUSION: Normal bowel gas pattern. Kameron Abdi Jr., MD A/P Problem List: (1) Adenocarcinoma of colon ICD Codes: C18.9 - Malignant neoplasm of colon, unspecified Status: Acute Plan: - Pt is a 52 y/o female who was recently diagnosed with adenocarcinoma of the colon. - She had been having increasing abdominal pain, bloating/distension and some rectal bleeding for about a week. She was referred to Gastroenterology who evaluated the patient with EGD/colonoscopy on 03/05/17 which noted acute gastritis and 5cm x 5cm circumferential abnormal mucosa was found at the splenic flexure, the mucosa was congested, edematous, erythematous, friable, and oozing blood. Pathology with invasive moderately differentiated colonic adenocarcinoma. - Pt was then sent to see General Surgery and was evaluated by Dr. Castañeda on 03/08. - She has had persistent bloating, abdominal pain and nausea. She has not had any BMs since the colonoscopy but has passed some bloody mucous. - Pt was admitted for surgical intervention with General Surgery. - Pt underwent diagnostic laparoscopy with exploratory laparotomy and sigmoid colon resection with primary anastomosis. There was no obvious evidence of metastatic disease per the OR report. - KUB at admission which noted a normal bowel gas pattern. - Pt was started on Levaquin IV - Diet advancement per GS - Zofran PRN - Pain control PRN - Supportive Care - DVT prophylaxis with Lovenox Assessment and Plan Patient examined. Assessment and plan formulated with Giana Nicholson PA-C. I agree with the above. Giana Nicholson Mar 09, 2017 16:19 Honorio Saenz DO Mar 10, 2017 01:04
[2017-03-09] MEDS: metroNIDAZOLE 500 MG INJ 100 ML IV SCH (20:05)
[2017-03-09] MEDS ORDERED: metroNIDAZOLE 500 MG INJ 100 ML IV SCH (21:00)
[2017-03-10] VITALS (8 sets, daily range): BP systolic 80–106; BP diastolic 44–63; PULSE 62–80; RESP 17–21; TEMP 96.9–99; O2SAT 94–99
--- NOTE | 2017-03-10 01:18 | EKG ---
Date Performed: 03/08/2017 Time Performed: 13:47:44 PTAGE: 52 years EKG: Sinus rhythm NORMAL ECG PREVIOUS TRACING : 03/05/2017 06.50 Compared to prior tracing no significant change DOCTOR: Davion Elizabeth Interpretating Date/Time 03/10/2017 01:16:39
[2017-03-10] MEDS: D5-1/2 NS + KCL 20 MEQ INJ 1,000 ML IV SCH ×3 (05:23→17:56)
[2017-03-10] MEDS: metroNIDAZOLE 500 MG INJ 100 ML IV SCH ×2 (05:23→12:33)
[2017-03-10] MEDS: KETOROLAC TROMETHAMINE 30 MG/ML (IVP) VIAL IVP SCH ×4 (05:23→22:54)
[2017-03-10] MEDS: ACETAMINOPHEN 1000 MG/100 ML VIAL IV SCH ×2 (05:24→15:49)
[2017-03-10 06:59] LABS: AUTOMATED NEUTROPHIL # 11.3 TH/MM3 (1.8-7.7); BASOPHIL % 0.1 % (0.0-2.0); HEMATOCRIT 33.9 % (35.0-46.0); HEMO FLAGS DIFF FINAL; LYMPH % 6.4 % (9.0-44.0); LYMPHOCYTE # 0.8 TH/MM3 (1.0-4.8); MEAN CELL VOLUME 87.9 FL (80.0-100.0); MEAN CORPUSCULAR HEMOGLOBIN 29.2 PG (27.0-34.0); MEAN CORPUSCULAR HGB CONC 33.2 % (32.0-36.0); MONO % 7.3 % (0.0-8.0); NEUT % 86.2 % (16.0-70.0); PLATELET COUNT 193 TH/MM3 (150-450); RED BLOOD COUNT 3.85 MIL/MM3 (4.00-5.30); RED CELL DISTRIBUTION WIDTH 13.7 % (11.6-17.2); WHITE BLOOD COUNT 13.1 TH/MM3 (4.0-11.0)
[2017-03-10 07:07] LABS: BICARBONATE 27.5 MEQ/L (21.0-32.0); POTASSIUM 4.2 MEQ/L (3.5-5.1)
[2017-03-10 07:17] LABS: FREE T4 1.41 NG/DL (0.76-1.46)
[2017-03-10] MEDS ORDERED: LEVOFLOXACIN 500 MG PREMIX INJ 100 ML IV ONE (12:00)
--- NOTE | 2017-03-10 12:12 | HHI.PR ---
Subjective Remarks Patient sitting up in chair reports feeling well reports soreness at incision site worse with movement tolerating clear liquid diet Objective Vitals Vital Signs Date Time Temp Pulse Resp B/P (MAP) Pulse Ox O2 Delivery O2 Flow Rate FiO2 03/10/17 08:00 97.1 67 17 80/44 (56) 99 03/10/17 04:00 96.9 64 19 93/50 (64) 96 03/10/17 00:00 97.7 62 18 89/52 (64) 99 03/09/17 20:42 100 Nasal Cannula 2.00 03/09/17 20:00 97.2 77 20 113/62 (79) 99 03/09/17 18:00 95.8 78 11 93/53 (66) 100 03/09/17 16:41 90 16 97/55 (69) 100 Nasal Cannula 2 03/09/17 15:45 89 16 104/57 (73) 100 Nasal Cannula 2 03/09/17 15:30 95 16 99/56 (70) 100 Nasal Cannula 2 03/09/17 15:15 88 16 94/51 (65) 100 Nasal Cannula 2 03/09/17 15:02 98.5 81 16 99/52 (68) 100 Nasal Cannula 2 Result Diagram: 03/10/17 0620 03/10/17 06 Other Results Laboratory Tests Test 03/08/17 15:47 03/09/17 03:35 03/09/17 05:08 03/10/17 06:20 White Blood Count 5.2 TH/MM3 5.6 TH/MM3 13.1 TH/MM3 Red Blood Count 4.19 MIL/MM3 3.96 MIL/MM3 3.85 MIL/MM3 Hemoglobin 12.0 GM/DL 11.6 GM/DL 11.3 GM/DL Hematocrit 36.4 % 34.4 % 33.9 % Mean Corpuscular Volume 86.8 FL 86.9 FL 87.9 FL Mean Corpuscular Hemoglobin 28.7 PG 29.3 PG 29.2 PG Mean Corpuscular Hemoglobin Concent 33.1 % 33.7 % 33.2 % Red Cell Distribution Width 13.6 % 13.2 % 13.7 % Platelet Count 223 TH/MM3 210 TH/MM3 193 TH/MM3 Mean Platelet Volume 8.2 FL 8.2 FL 8.6 FL Neutrophils (%) (Auto) 65.9 % 70.9 % 86.2 % Lymphocytes (%) (Auto) 26.2 % 19.2 % 6.4 % Monocytes (%) (Auto) 6.4 % 7.1 % 7.3 % Eosinophils (%) (Auto) 1.1 % 0.9 % 0.0 % Basophils (%) (Auto) 0.4 % 1.9 % 0.1 % Neutrophils # (Auto) 3.5 TH/MM3 4.0 TH/MM3 11.3 TH/MM3 Lymphocytes # (Auto) 1.4 TH/MM3 1.1 TH/MM3 0.8 TH/MM3 Monocytes # (Auto) 0.3 TH/MM3 0.4 TH/MM3 1.0 TH/MM3 Eosinophils # (Auto) 0.1 TH/MM3 0.0 TH/MM3 0.0 TH/MM3 Basophils # (Auto) 0.0 TH/MM3 0.1 TH/MM3 0.0 TH/MM3 CBC Comment DIFF FINAL DIFF FINAL DIFF FINAL Differential Comment Blood Urea Nitrogen 7 MG/DL 9 MG/DL 5 MG/DL Creatinine 0.51 MG/DL 0.65 MG/DL 0.57 MG/DL Random Glucose 92 MG/DL 111 MG/DL 150 MG/DL Calcium Level 8.8 MG/DL 8.8 MG/DL 8.3 MG/DL Magnesium Level 2.3 MG/DL Sodium Level 141 MEQ/L 142 MEQ/L 143 MEQ/L Potassium Level 3.6 MEQ/L 3.9 MEQ/L 4.2 MEQ/L Chloride Level 104 MEQ/L 109 MEQ/L 108 MEQ/L Carbon Dioxide Level 28.2 MEQ/L 24.3 MEQ/L 27.5 MEQ/L Anion Gap 9 MEQ/L 9 MEQ/L 8 MEQ/L Estimat Glomerular Filtration Rate 126 ML/MIN 95 ML/MIN 111 ML/MIN Free Thyroxine 1.41 NG/DL Thyroid Stimulating Hormone 3rd Gen 0.167 uIU/ML Imaging Last Impressions Chest X-Ray 03/08/17 1255 Signed Impressions: Service Date/Time: February 13:09 - CONCLUSION: No acute disease. Jerardo Swanson MD Abdomen X-Ray 03/08/17 0000 Signed Impressions: Service Date/Time: February 13:02 - CONCLUSION: Normal bowel gas pattern. Kameron Abdi Jr., MD Objective Remarks GENERAL: This is a well-nourished, well-developed patient, in no apparent distress. SKIN: abdominal incision with ss present small amount of dried drainage present CARDIO: Regular. RESP: CTA bilaterally. No wheezes, rales, or rhonchi. ABD: scant BS, distended, diffusely tender. EXT: Extremities without clubbing, cyanosis, or edema. NEURO: Awake and alert. Motor and sensory grossly within normal limits. Normal speech. Procedures 03/09/17 diagnostic laparoscopy with exploratory laparotomy and sigmoid colon resection with primary anastomosis A/P Problem List: (1) Adenocarcinoma of colon ICD Codes: C18.9 - Malignant neoplasm of colon, unspecified Status: Acute Plan: - Pt is a 52 y/o female who was recently diagnosed with adenocarcinoma of the colon. - She had been having increasing abdominal pain, bloating/distension and some rectal bleeding for about a week. She was referred to Gastroenterology who evaluated the patient with EGD/colonoscopy on 03/05/17 which noted acute gastritis and 5cm x 5cm circumferential abnormal mucosa was found at the splenic flexure, the mucosa was congested, edematous, erythematous, friable, and oozing blood. Pathology with invasive moderately differentiated colonic adenocarcinoma. - Pt was then sent to see General Surgery and was evaluated by Dr. Castañeda on 03/08. - She has had persistent bloating, abdominal pain and nausea. She has not had any BMs since the colonoscopy but has passed some bloody mucous. - Pt was admitted for surgical intervention with General Surgery. - 03/09/17 Pt underwent diagnostic laparoscopy with exploratory laparotomy and sigmoid colon resection with primary anastomosis. There was no obvious evidence of metastatic disease per the OR report. - KUB at admission which noted a normal bowel gas pattern. - Pt was started on Levaquin IV per GS - Diet advancement per GS - Zofran PRN - Pain control PRN - Supportive Care - WBC elevated to 13.1 likely reactive post op - recheck labs in AM - DVT prophylaxis with Lovenox Assessment and Plan Patient examined. Assessment and plan formulated with Venita Mcgregor PA-C. I agree with the above. Venita Mcgregor Mar 10, 2017 12:12 Honorio Saenz DO Mar 10, 2017 22:40
[2017-03-10] MEDS: MORPHINE SULFATE 4 MG/ML INJ IV PRN ×2 (12:27→17:50)
--- NOTE | 2017-03-10 12:42 | HHI.PR ---
Subjective Subjective Notes Patient has moderate pain but has been out of bed without major problem. She is passing flatus but has tolerated clear liquids without nausea. Objective Vitals/I&O Vital Signs Date Time Temp Pulse Resp B/P (MAP) Pulse Ox O2 Delivery O2 Flow Rate FiO2 03/10/17 12:00 98.1 77 17 99/53 (68) 94 03/09/17 20:42 Nasal Cannula 2.00 Labs Laboratory Tests Test 03/10/17 06:20 White Blood Count 13.1 Red Blood Count 3.85 Hemoglobin 11.3 Hematocrit 33.9 Mean Corpuscular Volume 87.9 Mean Corpuscular Hemoglobin 29.2 Mean Corpuscular Hemoglobin Concent 33.2 Red Cell Distribution Width 13.7 Platelet Count 193 Mean Platelet Volume 8.6 Neutrophils (%) (Auto) 86.2 Lymphocytes (%) (Auto) 6.4 Monocytes (%) (Auto) 7.3 Eosinophils (%) (Auto) 0.0 Basophils (%) (Auto) 0.1 Neutrophils # (Auto) 11.3 Lymphocytes # (Auto) 0.8 Monocytes # (Auto) 1.0 Eosinophils # (Auto) 0.0 Basophils # (Auto) 0.0 CBC Comment DIFF FINAL Differential Comment Blood Urea Nitrogen 5 Creatinine 0.57 Random Glucose 150 Calcium Level 8.3 Sodium Level 143 Potassium Level 4.2 Chloride Level 108 Carbon Dioxide Level 27.5 Anion Gap 8 Estimat Glomerular Filtration Rate 111 Free Thyroxine 1.41 Thyroid Stimulating Hormone 3rd Gen 0.167 Cardiovascular: Regular Lungs: Clear Abdomen: Post-op tenderness Extremities: No edema A/P Assessment and Plan Patient is postop day #1 status post sigmoid colon resection with primary anastomosis. She is stable and making progress. I have encouraged her to take the pain medication in order to increase her ambulation. We'll plan to remove the Espino catheter tomorrow as she is still requiring increased IV fluid for now. Darwin Valdez MD Mar 10, 2017 12:42
[2017-03-10] MEDS: SODIUM CHLORIDE 0.9% FLUSH 10 ML FLUSH IV FLUSH SCH ×2 (12:43→20:03)
[2017-03-10] MEDS: ENOXAPARIN SODIUM 30 MG/0.3 ML SYRINGE SQ SCH (14:15)
[2017-03-10] MEDS: PANTOPRAZOLE SODIUM 40 MG VIAL IV SCH (17:28)
[2017-03-11] VITALS (7 sets, daily range): BP systolic 90–119; BP diastolic 53–69; PULSE 69–89; RESP 16–22; TEMP 96.5–99.7; O2SAT 93–97
[2017-03-11] MEDS: D5-1/2 NS + KCL 20 MEQ INJ 1,000 ML IV SCH (00:32)
[2017-03-11] MEDS: KETOROLAC TROMETHAMINE 30 MG/ML (IVP) VIAL IVP SCH ×4 (04:40→21:42)
[2017-03-11 08:17] LABS: HEMATOCRIT 30.1 % (35.0-46.0); MEAN CELL VOLUME 88.2 FL (80.0-100.0); MEAN CORPUSCULAR HEMOGLOBIN 29.1 PG (27.0-34.0); PLATELET COUNT 181 TH/MM3 (150-450); RED BLOOD COUNT 3.41 MIL/MM3 (4.00-5.30); RED CELL DISTRIBUTION WIDTH 13.7 % (11.6-17.2); REVIEW FLAG FINAL
[2017-03-11 08:35] LABS: BICARBONATE 27.8 MEQ/L (21.0-32.0); POTASSIUM 3.9 MEQ/L (3.5-5.1)
[2017-03-11] MEDS: SODIUM CHLORIDE 0.9% FLUSH 10 ML FLUSH IV FLUSH SCH ×2 (09:59→20:18)
--- NOTE | 2017-03-11 12:38 | HHI.PR ---
Subjective Remarks Pt tolerating liquid diet. Pain is controlled. Pt has had 2 BMs. Some blood in BM last night. Objective Vitals Vital Signs Date Time Temp Pulse Resp B/P (MAP) Pulse Ox O2 Delivery O2 Flow Rate FiO2 03/11/17 10:21 21 03/11/17 08:00 97.8 72 16 109/64 (79) 97 03/11/17 05:40 18 03/11/17 04:00 97.6 69 19 90/53 (65) 93 03/11/17 00:14 98.4 70 18 105/60 (75) 93 03/10/17 20:00 99.0 80 21 106/63 (77) 96 03/10/17 16:36 97 21 03/10/17 16:00 98.0 73 17 87/53 (64) 97 03/10/17 14:35 99 Result Diagram: 03/11/17 0747 03/11/17 0747 Imaging Last Impressions Chest X-Ray 03/08/17 1255 Signed Impressions: Service Date/Time: February 13:09 - CONCLUSION: No acute disease. Jerardo Swanson MD Abdomen X-Ray 03/08/17 0000 Signed Impressions: Service Date/Time: , March 08, 2017 13:02 - CONCLUSION: Normal bowel gas pattern. Kameron Abdi Jr., MD Objective Remarks GENERAL: This is a well-nourished, well-developed patient, in no apparent distress. SKIN: abdominal incision with ss present small amount of dried drainage present CARDIO: Regular. RESP: CTA bilaterally. No wheezes, rales, or rhonchi. ABD: scant BS, distended, diffusely tender. EXT: Extremities without clubbing, cyanosis, or edema. NEURO: Awake and alert. Motor and sensory grossly within normal limits. Normal speech. Procedures 03/09/17 diagnostic laparoscopy with exploratory laparotomy and sigmoid colon resection with primary anastomosis performed by Dr. Darwin Valdez A/P Problem List: (1) Adenocarcinoma of colon ICD Codes: C18.9 - Malignant neoplasm of colon, unspecified Status: Acute Plan: - comgmt with General Surgery - Pt is a 52 y/o female who was recently diagnosed with adenocarcinoma of the colon. - She had been having increasing abdominal pain, bloating/distension and some rectal bleeding for about a week. She was referred to Gastroenterology who evaluated the patient with EGD/colonoscopy on 03/05/17 which noted acute gastritis and 5cm x 5cm circumferential abnormal mucosa was found at the splenic flexure, the mucosa was congested, edematous, erythematous, friable, and oozing blood. Pathology with invasive moderately differentiated colonic adenocarcinoma. - She has had persistent bloating, abdominal pain and nausea. She has not had any BMs since the colonoscopy but has passed some bloody mucous. - diagnostic laparoscopy with exploratory laparotomy and sigmoid colon resection with primary anastomosis (03/09/17) performed by Dr. Darwin Valdez - yury prn - advance diet as tolerated - DVT prophylaxis - supportive care - Case d/w Dr. Valdez (03/11/17) Assessment and Plan Patient examined. Assessment and plan formulated with Giana Nicholson PA-C. I agree with the above. Case d/w Dr. Valdez (03/11/17) continue full liquid diet reevaluate clinical progress 03/12/17 Honorio Saenz DO Mar 11, 2017 12:38
--- NOTE | 2017-03-11 14:20 | HHI.PR ---
Subjective Subjective Notes She still has significant abdominal pain at times, reporting a 7 out of 10 presently. She has had 2 bowel movements, but has passed no flatus since surgery. She continues to belch but denies any nausea or emesis. She is tolerating a full liquid diet to this point. She has been gradually increasing her activity without problem. Objective Vitals/I&O Vital Signs Date Time Temp Pulse Resp B/P (MAP) Pulse Ox O2 Delivery O2 Flow Rate FiO2 03/11/17 12:00 96.5 76 19 113/69 (84) 97 03/11/17 10:21 21 03/09/17 20:42 Nasal Cannula 2.00 Labs Laboratory Tests Test 03/11/17 07:47 White Blood Count 8.0 Red Blood Count 3.41 Hemoglobin 9.9 Hematocrit 30.1 Mean Corpuscular Volume 88.2 Mean Corpuscular Hemoglobin 29.1 Mean Corpuscular Hemoglobin Concent 33.0 Red Cell Distribution Width 13.7 Platelet Count 181 Mean Platelet Volume 8.1 Blood Urea Nitrogen 3 Creatinine 0.47 Random Glucose 109 Calcium Level 7.9 Sodium Level 143 Potassium Level 3.9 Chloride Level 112 Carbon Dioxide Level 27.8 Anion Gap 3 Estimat Glomerular Filtration Rate 138 Cardiovascular: Regular Lungs: Clear Narrative Exam Her abdomen is moderately distended but soft. She has no significant tenderness , other than at the surgical site. She has no guarding or rebound. A/P Assessment and Plan Patient is postop day # 2 status post sigmoid colon resection with primary anastomosis. She is stable and making progress. Her Espino catheter was removed earlier today. She has been advanced to full liquid diet but I'm reluctant to advance her further at this point due to her distention and lack of flatus. I have encouraged her to continue to increase her ambulation. If she continues to progress well then discharged may be possible tomorrow. Darwin Valdez MD Mar 11, 2017 14:20
[2017-03-11] MEDS ORDERED: ACETAMINOPHEN/HYDROcodone 325 MG/5 MG TAB PO PRN (15:30)
[2017-03-11] MEDS: ENOXAPARIN SODIUM 30 MG/0.3 ML SYRINGE SQ SCH (15:55)
[2017-03-11] MEDS: PANTOPRAZOLE SODIUM 40 MG VIAL IV SCH (15:55)
[2017-03-12] VITALS: BP 102/55; PULSE 73; RESP 22; TEMP 97.8; O2SAT 94
[2017-03-12] MEDS: KETOROLAC TROMETHAMINE 30 MG/ML (IVP) VIAL IVP SCH ×4 (03:45→21:13)
[2017-03-12 06:22] LABS: MEAN CELL VOLUME 87.8 FL (80.0-100.0); MEAN CORPUSCULAR HEMOGLOBIN 29.7 PG (27.0-34.0); MEAN CORPUSCULAR HGB CONC 33.8 % (32.0-36.0); PLATELET COUNT 186 TH/MM3 (150-450); RED BLOOD COUNT 3.42 MIL/MM3 (4.00-5.30); RED CELL DISTRIBUTION WIDTH 13.7 % (11.6-17.2); REVIEW FLAG FINAL; WHITE BLOOD COUNT 6.5 TH/MM3 (4.0-11.0)
[2017-03-12 08:00] VITALS: BP 123/65; PULSE 72; RESP 17; TEMP 97.8; O2SAT 97
[2017-03-12] MEDS: SODIUM CHLORIDE 0.9% FLUSH 10 ML FLUSH IV FLUSH SCH ×2 (09:00→21:00)
--- NOTE | 2017-03-12 10:26 | HHI.PR ---
Subjective Remarks Patient sitting up on edge of bed reports feeling better today rates pain 3/10 BMs times 2 in the past 24 hours reports positive flatus while sitting on toilet tolerating full liquid diet Objective Vitals Vital Signs Date Time Temp Pulse Resp B/P (MAP) Pulse Ox O2 Delivery O2 Flow Rate FiO2 03/12/17 08:00 97.8 72 17 123/65 (84) 97 03/12/17 00:00 97.8 73 22 102/55 (71) 94 03/11/17 21:41 18 03/11/17 20:00 97.3 87 22 119/58 (78) 97 03/11/17 18:08 96 21 03/11/17 16:00 99.7 89 18 104/59 (74) 96 03/11/17 12:00 96.5 76 19 113/69 (84) 97 Result Diagram: 03/12/17 0539 03/11/17 0747 Other Results Laboratory Tests Test 03/10/17 06:20 03/11/17 07:47 03/12/17 05:39 White Blood Count 13.1 TH/MM3 8.0 TH/MM3 6.5 TH/MM3 Red Blood Count 3.85 MIL/MM3 3.41 MIL/MM3 3.42 MIL/MM3 Hemoglobin 11.3 GM/DL 9.9 GM/DL 10.1 GM/DL Hematocrit 33.9 % 30.1 % 30.0 % Mean Corpuscular Volume 87.9 FL 88.2 FL 87.8 FL Mean Corpuscular Hemoglobin 29.2 PG 29.1 PG 29.7 PG Mean Corpuscular Hemoglobin Concent 33.2 % 33.0 % 33.8 % Red Cell Distribution Width 13.7 % 13.7 % 13.7 % Platelet Count 193 TH/MM3 181 TH/MM3 186 TH/MM3 Mean Platelet Volume 8.6 FL 8.1 FL 8.8 FL Neutrophils (%) (Auto) 86.2 % Lymphocytes (%) (Auto) 6.4 % Monocytes (%) (Auto) 7.3 % Eosinophils (%) (Auto) 0.0 % Basophils (%) (Auto) 0.1 % Neutrophils # (Auto) 11.3 TH/MM3 Lymphocytes # (Auto) 0.8 TH/MM3 Monocytes # (Auto) 1.0 TH/MM3 Eosinophils # (Auto) 0.0 TH/MM3 Basophils # (Auto) 0.0 TH/MM3 CBC Comment DIFF FINAL Differential Comment Blood Urea Nitrogen 5 MG/DL 3 MG/DL Creatinine 0.57 MG/DL 0.47 MG/DL Random Glucose 150 MG/DL 109 MG/DL Calcium Level 8.3 MG/DL 7.9 MG/DL Sodium Level 143 MEQ/L 143 MEQ/L Potassium Level 4.2 MEQ/L 3.9 MEQ/L Chloride Level 108 MEQ/L 112 MEQ/L Carbon Dioxide Level 27.5 MEQ/L 27.8 MEQ/L Anion Gap 8 MEQ/L 3 MEQ/L Estimat Glomerular Filtration Rate 111 ML/MIN 138 ML/MIN Free Thyroxine 1.41 NG/DL Thyroid Stimulating Hormone 3rd Gen 0.167 uIU/ML Imaging Last Impressions Chest X-Ray 03/08/17 1255 Signed Impressions: Service Date/Time: , March 08, 2017 13:09 - CONCLUSION: No acute disease. Jerardo Swanson MD Abdomen X-Ray 03/08/17 0000 Signed Impressions: Service Date/Time: , March 08, 2017 13:02 - CONCLUSION: Normal bowel gas pattern. Kameron Abdi Jr., MD Objective Remarks GENERAL: This is a well-nourished, well-developed patient, in no apparent distress. SKIN: abdominal incision with steristrips intact small amount of dried drainage present CARDIO: Regular. RESP: CTA bilaterally. No wheezes, rales, or rhonchi. ABD: hypoactive BS, distended but soft EXT: Extremities without clubbing, cyanosis, or edema. NEURO: Awake and alert. Motor and sensory grossly within normal limits. Normal speech. Procedures 03/09/17 diagnostic laparoscopy with exploratory laparotomy and sigmoid colon resection with primary anastomosis performed by Dr. Darwin Valdez A/P Problem List: (1) Adenocarcinoma of colon ICD Codes: C18.9 - Malignant neoplasm of colon, unspecified Status: Acute Plan: - comgmt with General Surgery - Pt is a 52 y/o female who was recently diagnosed with adenocarcinoma of the colon. - She had been having increasing abdominal pain, bloating/distension and some rectal bleeding for about a week. She was referred to Gastroenterology who evaluated the patient with EGD/colonoscopy on 03/05/17 which noted acute gastritis and 5cm x 5cm circumferential abnormal mucosa was found at the splenic flexure, the mucosa was congested, edematous, erythematous, friable, and oozing blood. Pathology with invasive moderately differentiated colonic adenocarcinoma. - She has had persistent bloating, abdominal pain and nausea. She has not had any BMs since the colonoscopy but has passed some bloody mucous. - diagnostic laparoscopy with exploratory laparotomy and sigmoid colon resection with primary anastomosis (03/09/17) performed by Dr. Darwin cotton prn - tolerating full liquid diet- will defer further advance of diet to surgery - DVT prophylaxis - supportive care Assessment and Plan Patient examined. Assessment and plan formulated with Giana BRYANTC. I agree with the above. s/p resection of sigmoid adenoca. incisions look c/d/i. no cellulitis flatus and small bm advance diet and d/c when ok with gen surg. Venita Mcgregor Mar 12, 2017 10:26 Diego Mccartney MD Mar 12, 2017 14:15
[2017-03-12 10:55] VITALS: O2SAT 98
[2017-03-12 12:00] VITALS: BP 117/58; PULSE 80; RESP 17; TEMP 97.4; O2SAT 97
--- NOTE | 2017-03-12 12:22 | HHI.PR ---
Subjective Subjective Notes She states she is feeling better. She's had several bowel movements and has had diminished pain. She is tolerating a full liquid diet without nausea or emesis. She has been out of bed walking without problem. Objective Vitals/I&O Vital Signs Date Time Temp Pulse Resp B/P (MAP) Pulse Ox O2 Delivery O2 Flow Rate FiO2 03/12/17 12:00 97.4 80 17 117/58 (77) 97 03/11/17 18:08 21 03/09/17 20:42 Nasal Cannula 2.00 Labs Laboratory Tests Test 03/12/17 05:39 White Blood Count 6.5 Red Blood Count 3.42 Hemoglobin 10.1 Hematocrit 30.0 Mean Corpuscular Volume 87.8 Mean Corpuscular Hemoglobin 29.7 Mean Corpuscular Hemoglobin Concent 33.8 Red Cell Distribution Width 13.7 Platelet Count 186 Mean Platelet Volume 8.8 Cardiovascular: Regular Lungs: Clear Abdomen: Non-distended, Non-tender, BS normal Extremities: No edema A/P Assessment and Plan Patient is postop day # 3 status post sigmoid colon resection with primary anastomosis. She is stable and making progress. I advanced her diet to regular. She is not quite ready to go home at this point so we will keep her until tomorrow. Darwin Valdez MD Mar 12, 2017 12:22
[2017-03-12 16:00] VITALS: BP 90/52; PULSE 78; RESP 17; TEMP 98.7; O2SAT 98
[2017-03-12] MEDS: PANTOPRAZOLE SODIUM 40 MG VIAL IV SCH (16:52)
[2017-03-12] MEDS: ENOXAPARIN SODIUM 30 MG/0.3 ML SYRINGE SQ SCH (16:54)
[2017-03-12 20:00] VITALS: BP 107/61; PULSE 67; RESP 20; TEMP 99; O2SAT 96
[2017-03-13] VITALS: BP 107/56; PULSE 76; RESP 18; TEMP 97.6; O2SAT 97
[2017-03-13] MEDS: KETOROLAC TROMETHAMINE 30 MG/ML (IVP) VIAL IVP SCH ×2 (03:18→10:00)
[2017-03-13 08:00] VITALS: BP 115/67; PULSE 74; RESP 18; TEMP 96.7; O2SAT 97
[2017-03-13] MEDS: SODIUM CHLORIDE 0.9% FLUSH 10 ML FLUSH IV FLUSH SCH (09:00)
--- NOTE | 2017-03-13 11:27 | HHI.DS ---
Discharge Summary Admission Date Mar 08, 2017 at 12:16 Discharge Date: Mar 13, 2017 Admitting Diagnosis Obstructing colon mass (1) Adenocarcinoma of colon ICD Codes: C18.9 - Malignant neoplasm of colon, unspecified Status: Acute Consultants Dr. Darwin Valdez Procedures 03/09/17 diagnostic laparoscopy with exploratory laparotomy and sigmoid colon resection with primary anastomosis performed by Dr. Darwin Valdez Brief History Mrs. Leonard is a pleasant 52 y/o female who was recently diagnosed with adenocarcinoma of the colon. Pt had been having increasing abdominal pain, bloating/distension and some rectal bleeding for about a week. She was seen by her PCP last week and was sent for imaging studies. Pt was started on Flagyl for a presumed gastroenteritis per the patient. She was then referred to Gastroenterology who evaluated the patient with EGD/colonoscopy on 03/05/17 which noted acute gastritis and 5cm x 5cm circumferential abnormal mucosa was found at the splenic flexure, the mucosa was congested, edematous, erythematous , friable, and oozing blood. Pathology with invasive moderately differentiated colonic adenocarcinoma. Pt was then sent to see General Surgery and was evaluated by today. She states that since the colonoscopy she has had persistent bloating, abdominal pain and nausea. She has not had any BMs since the colonoscopy but has passed some bloody mucous. She has not had any vomiting or fevers. She denies any chest pain, SOB, dizziness, weakness, or palpitations. She had a KUB at admission which noted a normal bowel gas pattern. CBC/BMP: 03/12/17 0539 03/11/17 0747 Significant Findings Laboratory Tests Test 03/11/17 07:47 03/12/17 05:39 Red Blood Count 3.41 MIL/MM3 (4.00-5.30) 3.42 MIL/MM3 (4.00-5.30) Hemoglobin 9.9 GM/DL (11.6-15.3) 10.1 GM/DL (11.6-15.3) Hematocrit 30.1 % (35.0-46.0) 30.0 % (35.0-46.0) Blood Urea Nitrogen 3 MG/DL (7-18) Creatinine 0.47 MG/DL (0.50-1.00) Random Glucose 109 MG/DL (74-106) Calcium Level 7.9 MG/DL (8.5-10.1) Chloride Level 112 MEQ/L (98-107) Anion Gap 3 MEQ/L (5-15) Imaging Last Impressions Chest X-Ray 03/08/17 1255 Signed Impressions: Service Date/Time: February 13:09 - CONCLUSION: No acute disease. Jerardo Swanson MD Abdomen X-Ray 03/08/17 0000 Signed Impressions: Service Date/Time: , March 08, 2017 13:02 - CONCLUSION: Normal bowel gas pattern. Kameron Abdi Jr., MD PE at Discharge GENERAL: This is a well-nourished, well-developed patient, in no apparent distress. SKIN: abdominal incision with steristrips intact small amount of dried drainage present CARDIO: Regular. RESP: CTA bilaterally. No wheezes, rales, or rhonchi. ABD: hypoactive BS, distended but soft EXT: Extremities without clubbing, cyanosis, or edema. NEURO: Awake and alert. Motor and sensory grossly within normal limits. Normal speech. Hospital Course Adenocarcinoma of colon - comgmt with General Surgery - Pt is a 52 y/o female who was recently diagnosed with adenocarcinoma of the colon. - She had been having increasing abdominal pain, bloating/distension and some rectal bleeding for about a week. She was referred to Gastroenterology who evaluated the patient with EGD/colonoscopy on 03/05/17 which noted acute gastritis and 5cm x 5cm circumferential abnormal mucosa was found at the splenic flexure, the mucosa was congested, edematous, erythematous, friable, and oozing blood. Pathology with invasive moderately differentiated colonic adenocarcinoma. - She has had persistent bloating, abdominal pain and nausea. She has not had any BMs since the colonoscopy but has passed some bloody mucous. - diagnostic laparoscopy with exploratory laparotomy and sigmoid colon resection with primary anastomosis (03/09/17) performed by Dr. Darwin Valdez - yury prn - tolerating reg diet - DVT prophylaxis Lovenox - supportive care Pt Condition on Discharge: Stable Discharge Disposition: Discharge Home Discharge Instructions DIET: Follow Instructions for: As Tolerated, No Restrictions Activities to Avoid: Lifting/Bending Follow up Referrals: PCP Follow-up - [address] I[facility] - [address] Darwin Valdez Continued Medications: Pantoprazole (Pantoprazole) 40 Mg Tab 40 MG PO DAILY for Reflux, #30 TAB 0 Refills Tramadol (Tramadol) 50 Mg Tab 50 MG PO Q12HR PRN for PAIN, TAB 0 Refills Discontinued Medications: Metronidazole (Metronidazole) 500 Mg Tab 500 MG PO TID for Infection, TAB 0 Refills Venita Mcgregor Mar 13, 2017 11:27
--- NOTE | 2017-03-13 11:47 | HHI.PR ---
Subjective Subjective Notes No complaints; not taking pain meds. Has been tolerating a regular diet and having loose BM/s. Objective Vitals/I&O Vital Signs Date Time Temp Pulse Resp B/P (MAP) Pulse Ox O2 Delivery O2 Flow Rate FiO2 03/13/17 08:00 96.7 74 18 115/67 (83) 97 03/11/17 18:08 21 03/09/17 20:42 Nasal Cannula 2.00 Cardiovascular: Regular Lungs: Clear Abdomen: Non-distended, Non-tender, Post-op tenderness, BS normal Extremities: No edema A/P Assessment and Plan Patient is postop day #4 status post sigmoid colon resection with primary anastomosis. She is doing well with no problems. OK from my standpoint to be d/c'd. I will see her in the office next week. No analgesics necessary. Darwin Valdez MD Mar 13, 2017 11:47
[2017-03-13 12:00] VITALS: BP 105/65; PULSE 89; RESP 18; TEMP 97.6; O2SAT 98
--- NOTE | 2017-03-13 12:00 | HHI.DCPOC ---
Discharge Care Plan Diagnosis: (1) Adenocarcinoma of colon Goals to Promote Your Health * To prevent worsening of your condition and complications * To maintain your health at the optimal level Directions to Meet Your Goals Take your medications as prescribed Follow your dietary instruction Follow activity as directed Keep your appointments as scheduled Take your immunizations and boosters as scheduled If your symptoms worsen call your PCP, if no PCP go to Urgent Care Center or Emergency Room Smoking is Dangerous to Your Health. Avoid second hand smoke Call the 24-hour hour crisis hotline for domestic abuse at Venita Mcgregor Mar 13, 2017 12:00
[2017-03-13] MEDS: ENOXAPARIN SODIUM 30 MG/0.3 ML SYRINGE SQ SCH (13:22)
== END 2017-03-13 15:08 | disposition home or self-care (01) | DRG 331 ==
LOC: N07A 12:16
PROVIDERS: ADMIT Hospitalist; ATTEND Hospitalist
PROC: 0DTN0ZZ Resection of Sigmoid Colon, Open Approach (ICD-10-PCS; principal; 2017-03-09 11:55)
PROC: 0WJG4ZZ Inspection of Peritoneal Cavity, Percutaneous Endoscopic Approach (ICD-10-PCS; 2017-03-09 11:55)
DX: C18.7 Malignant neoplasm of sigmoid colon (principal); R55 Syncope and collapse; E07.9 Disorder of thyroid, unspecified; K29.00 Acute gastritis without bleeding; Z53.31 Laparoscopic surgical procedure converted to open procedure; R11.2 Nausea with vomiting, unspecified; R19.7 Diarrhea, unspecified; R14.0 Abdominal distension (gaseous); R51 Headache
CPT/HCPCS: 70450; 71010; 72125; 74000; 80048; 80053; 80307; 81001; 82550; 83735; 84439; 84443; 84484; 85025; 85027; 85610; 85730; 88305; 88307; 88309; 88312; 93005; 94150; 96361; 96374; C9113; C9290; J0131; J1100; J1170; J1650; J1885; J1956; J2250; J2270; J2370; J2405; J2550; J2710; J3010; J3480; J7030; J7120; J8501

== ENCOUNTER 2017-06-08 16:11 | Observation (INO) | payer OTHER ==
[~2017-06-08] VITALS: Ht 160 cm; Wt 57.0 kg
[~2017-06-08 16:11] MED LIST: PANT40TA3 PO; TRAM50TA PO
[2017-06-08 16:12] VITALS: BP 139/68; PULSE 91; RESP 18; TEMP 98.9; O2SAT 99
[2017-06-08] MEDS ORDERED: SODIUM CHLOR 0.9% 1000 ML INJ 1,000 ML IV ONE (17:05)
[2017-06-08] MEDS ORDERED: PROCHLORPERAZINE INJ 10 MG/2 ML VIAL IVP ONE (17:15)
[2017-06-08] MEDS ORDERED: diphenhydrAMINE HCL 50 MG/ML VIAL IVP ONE (17:15)
[2017-06-08] MEDS ORDERED: MECLIZINE HCL 25 MG TAB PO ONE (17:15)
[2017-06-08] MEDS ORDERED: SODIUM CHLORIDE 0.9% FLUSH 10 ML FLUSH IVF PRN (17:15)
--- NOTE | 2017-06-08 17:17 | PD ---
HPI Chief Complaint: Headache Time Seen by Provider: 16:54 Travel History International Travel<30 days: No Contact w/Intl Traveler<30days: No Traveled to known affect area: No History of Present Illness HPI 52-year-old female presents to the emergency department sent by her primary care physician for further evaluation. Patient states that about 3 days ago, she started with unsteady gait, fluttering of the eyes and visual changes. Patient states that this morning around 6:30 she started with a headache that has radiated to the right side of the head. She currently rates his pain 10/ 10. She states it started gradually and has worsened. She denies any history of headaches. Patient states that she has fluttering of her vision which is abnormal for her. She denies any chest pain. She reports chronic abdominal pain after having colon cancer removed in March. She states they got all of the cancer and she is now cancer free. She denies any chest pain or shortness of breath. Patient states her gait is unsteady. She does report history of vertigo, but states these symptoms are different. Moderate severity. She states that she took her medication for vertigo which did not help her symptoms. No exacerbating or alleviating symptoms. PFSH Past Medical History Autoimmune Disease: No Anxiety: No Depression: No Cancer: Yes (colon ca) Cardiovascular Problems: No Chemotherapy: No Diabetes: No (gestational diabetes ) Genitourinary: No Immune Disorder: No Musculoskeletal: No Neurologic: No Psychiatric: No Reproductive: No Respiratory: No Immunizations Current: Yes Radiation Therapy: No Sickle Cell Disease: No Thyroid Disease: Yes (new does not know if hyper of hypo ) ?: Not Past Surgical History Abdominal Surgery: No Body Medical Devices: dental implants Cardiac Surgery: No Ear Surgery: No Endocrine Surgery: No Eye Surgery: No Genitourinary Surgery: No Gynecologic Surgery: Yes (partial hysterectmoy) Oral Surgery: Yes (permenet partials ) Thoracic Surgery: No Social History Alcohol Use: No Tobacco Use: No Substance Use: No Allergies-Medications (Allergen,Severity, Reaction): Uncoded Allergies: dye (Allergy, Unknown, rashes , 06/08/17) Reported Meds & Prescriptions Reported Meds & Active Scripts Active Reported Probiotic (Lactobacillus Acidophilus) 10 Billion Cell Cap 1 Cap PO DAILY Review of Systems Except as stated in HPI: all other systems reviewed are Neg Physical Exam Narrative GENERAL: Well-nourished, well-developed female patient, afebrile. SKIN: Focused skin assessment warm/dry. Patient has small scab to the back and left thigh where possible skin cancer was recently removed. HEAD: Normocephalic. Atraumatic. EYES: No scleral icterus. No injection or drainage. PERRLA. EOM intact. ENT: Mucosa pink and moist. No erythema or exudates. No uvular edema. No uvular , palatal, or tonsillar deviation. Airway patent. Nasal turbinates appear normal without nasal blood, purulent drainage or septal hematoma. Bilateral tympanic membranes are clear without erythema or perforation. NECK: Supple, trachea midline. No JVD or lymphadenopathy. CARDIOVASCULAR: Regular rate and rhythm without murmurs, gallops, or rubs. Bilateral radial and pedal pulses are 2+ RESPIRATORY: Breath sounds equal bilaterally. No accessory muscle use. Lungs sounds are clear to auscultation GASTROINTESTINAL: Abdomen soft, non-tender, nondistended. MUSCULOSKELETAL: No cyanosis, or edema. Bilateral upper and lower extremity strength 5/5. All extremities are neurovascularly intact. BACK: Nontender without obvious deformity. No CVA tenderness. NEUROLOGICAL: Awake and alert. Cranial nerves II through XII intact. Motor and sensory grossly within normal limits. Five out of 5 muscle strength in all muscle groups. Normal speech. Patient missed my finger is doing finger to nose with her right hand several times. [id number] is normal bilaterally. Data Data Last Documented VS Vital Signs Date Time Temp Pulse Resp B/P (MAP) Pulse Ox O2 Delivery O2 Flow Rate FiO2 06/08/17 18:09 89 18 124/75 (91) 99 Room Air 06/08/17 16:12 98.9 Orders Orders Complete Blood Count With Diff (06/08/17 17:05) Comprehensive Metabolic Panel (06/08/17 17:05) Prothrombin Time / Inr (Pt) (06/08/17 17:05) Act Partial Throm Time (Ptt) (06/08/17 17:05) Ct Brain W/O Iv Contrast(Rout) (06/08/17 17:05) Ecg Monitoring (06/08/17 17:05) Iv Access Insert/Monitor (06/08/17 17:05) Oximetry (06/08/17 17:05) Sodium Chloride 0.9% Flush (Ns Flush) (06/08/17 17:15) Prochlorperazine Inj (Compazine Inj) (06/08/17 17:15) Diphenhydramine Inj (Benadryl Inj) (06/08/17 17:15) Sodium Chlor 0.9% 1000 Ml Inj (Ns 1000 M (06/08/17 17:05) Thyroid Stimulating Hormone (06/08/17 17:05) Electrocardiogram (06/08/17 17:05) Creatine Kinase (Cpk) (06/08/17 17:05) Troponin I (06/08/17 17:05) Meclizine (Antivert) (06/08/17 17:15) Admit Order (Ed Use Only) (06/08/17 18:30) Labs Laboratory Tests Test 06/08/17 17:30 White Blood Count 7.7 TH/MM3 Red Blood Count 4.52 MIL/MM3 Hemoglobin 13.3 GM/DL Hematocrit 39.5 % Mean Corpuscular Volume 87.3 FL Mean Corpuscular Hemoglobin 29.4 PG Mean Corpuscular Hemoglobin Concent 33.7 % Red Cell Distribution Width 13.9 % Platelet Count 275 TH/MM3 Mean Platelet Volume 7.9 FL Neutrophils (%) (Auto) 57.5 % Lymphocytes (%) (Auto) 25.1 % Monocytes (%) (Auto) 6.0 % Eosinophils (%) (Auto) 10.8 % Basophils (%) (Auto) 0.6 % Neutrophils # (Auto) 4.4 TH/MM3 Lymphocytes # (Auto) 1.9 TH/MM3 Monocytes # (Auto) 0.5 TH/MM3 Eosinophils # (Auto) 0.8 TH/MM3 Basophils # (Auto) 0.0 TH/MM3 CBC Comment DIFF FINAL Differential Comment Prothrombin Time 10.5 SEC Prothromb Time International Ratio 1.0 RATIO Activated Partial Thromboplast Time 25.7 SEC Blood Urea Nitrogen 11 MG/DL Creatinine 0.65 MG/DL Random Glucose 146 MG/DL Total Protein 8.2 GM/DL Albumin 3.9 GM/DL Calcium Level 9.4 MG/DL Alkaline Phosphatase 88 U/L Aspartate Amino Transf (AST/SGOT) 17 U/L Alanine Aminotransferase (ALT/SGPT) 22 U/L Total Bilirubin 0.3 MG/DL Sodium Level 141 MEQ/L Potassium Level 3.4 MEQ/L Chloride Level 105 MEQ/L Carbon Dioxide Level 31.6 MEQ/L Anion Gap 4 MEQ/L Estimat Glomerular Filtration Rate 95 ML/MIN Total Creatine Kinase 36 U/L Troponin I LESS THAN 0.02 NG/ML Thyroid Stimulating Hormone 3rd Gen 0.633 uIU/ML MDM Medical Decision Making Medical Screen Exam Complete: Yes Emergency Medical Condition: Yes Medical Record Reviewed: Yes Interpretation(s) ct brain - CONCLUSION: Normal examination. Differential Diagnosis CVA versus TIA versus intracranial hemorrhage versus mass versus electrolyte abnormality versus cardiac arrhythmia versus vertigo Narrative Course 52-year-old female presents to the emergency department for evaluation of headache, unsteady gait, fluttering of the eyes. During neurological exam, patient missed my finger doing finger-nose multiple times. I discussed the case with attending physician, Dr. Arguello. EKG, CBC, CMP, TSH, CK, troponin, PTT , PT/INR are ordered and pending. CT of the brain is ordered and pending. Patient is given normal saline 1 L IV bolus, Compazine 10 mg IV, Benadryl 25 mg IV, meclizine 25 mg by mouth. Plan is for admission for further evaluation including MRI. EKG shows sinus rhythm, heart rate 76, no acute ST changes. CBC was unremarkable. CMP shows no acute abnormality. CK is 36. Troponin is less than 0.02. Coags show no acute abnormality. CT of the brain is normal. Hospital is paged for admission for further evaluation, MRI. Dr. Hardy accepted admission. Diagnosis Primary Impression: Neurological abnormality Admitting Information Admitting Physician Requests: Marnie Kendall Jun 08, 2017 17:17
[2017-06-08 17:54] LABS: AUTOMATED NEUTROPHIL # 4.4 TH/MM3 (1.8-7.7); BASOPHIL % 0.6 % (0.0-2.0); EOSINOPHIL # 0.8 TH/MM3 (0-0.4); EOSINOPHIL % 10.8 % (0.0-4.0); HEMATOCRIT 39.5 % (35.0-46.0); HEMO FLAGS DIFF FINAL; LYMPH % 25.1 % (9.0-44.0); LYMPHOCYTE # 1.9 TH/MM3 (1.0-4.8); MEAN CELL VOLUME 87.3 FL (80.0-100.0); MEAN CORPUSCULAR HEMOGLOBIN 29.4 PG (27.0-34.0); MEAN CORPUSCULAR HGB CONC 33.7 % (32.0-36.0); NEUT % 57.5 % (16.0-70.0); PLATELET COUNT 275 TH/MM3 (150-450); RED BLOOD COUNT 4.52 MIL/MM3 (4.00-5.30); RED CELL DISTRIBUTION WIDTH 13.9 % (11.6-17.2); WHITE BLOOD COUNT 7.7 TH/MM3 (4.0-11.0)
[2017-06-08] MEDS ORDERED: LACTCAP8 PO (17:55)
[2017-06-08 18:03] LABS: ALT (GPT) 22 U/L (10-53); ANION GAP 4 MEQ/L (5-15); AST (GOT) 17 U/L (15-37); BICARBONATE 31.6 MEQ/L (21.0-32.0); BLOOD UREA NITROGEN 11 MG/DL (7-18); CHLORIDE 105 MEQ/L (98-107); GLOMERULAR FILTRATION RATE 95 ML/MIN (>89); POTASSIUM 3.4 MEQ/L (3.5-5.1); SODIUM (NA) 141 MEQ/L (136-145)
[2017-06-08 18:05] LABS: APTT (PATIENT) 25.7 SEC (24.3-30.1); PROTHROMBIN TIME - PATIENT 10.5 SEC (9.8-11.6)
--- NOTE | 2017-06-08 18:07 | RADRPT ---
EXAM DATE/TIME: 06/08/2017 17:55 [facility] COMPARISON: CT BRAIN W/O CONTRAST, March 05, 2017, 6:33. INDICATIONS : Headache, vomiting., eye twitching. RADIATION DOSE: 29.95 CTDIvol (mGy) MEDICAL HISTORY : TBI, Diabetes; Colon ca, vertigo SURGICAL HISTORY : Hysterectomy. ENCOUNTER: Initial ACUITY: 1 day PAIN SCALE: 0/10 LOCATION: cranial TECHNIQUE: Multiple contiguous axial images were obtained of the head. Using automated exposure control and adj ustment of the mA and/or kV according to patient size, radiation dose was kept as low as reasonably a chievable to obtain optimal diagnostic quality images. DICOM format image data is available electro nically for review and comparison. FINDINGS: CEREBRUM: The ventricles are normal for age. No evidence of midline shift, mass lesion, hemorrhage or acute in farction. No extra-axial fluid collections are seen. POSTERIOR FOSSA: The cerebellum and brainstem are intact. The 4th ventricle is midline. The cerebellopontine angle i s unremarkable. EXTRACRANIAL: The visualized portion of the orbits is intact. SKULL: The calvaria is intact. No evidence of skull fracture. CONCLUSION: Normal examination. Igor Hansen MD on June 08, 2017 at 18:02 Board Certified Radiologist. This report was verified electronically.
[2017-06-08 18:09] VITALS: BP 124/75; PULSE 89; RESP 18; O2SAT 99
[2017-06-08 18:13] LABS: ALKALINE PHOSPHATASE 88 U/L (45-117); TOTAL BILIRUBIN ADULT 0.3 MG/DL (0.2-1.0)
[2017-06-08 18:17] LABS: CREATINE KINASE 36 U/L (26-192)
[2017-06-08 19:16] VITALS: BP 116/73; PULSE 71; RESP 18; O2SAT 99
[2017-06-08] MEDS ORDERED: BISACODYL 10 MG SUPP RECTAL PRN (20:00)
[2017-06-08] MEDS ORDERED: LACTULOSE SYRUP 20 GM/30 ML CUP PO PRN (20:00)
[2017-06-08] MEDS ORDERED: MAGNESIUM HYDROXIDE SUSP 30 ML CUP PO PRN (20:00)
[2017-06-08] MEDS ORDERED: NALOXONE HCL 0.4 MG/ML AMP IV PUSH PRN (20:00)
[2017-06-08] MEDS ORDERED: POTASSIUM CHLORIDE 8 MEQ CONTROLLED RELEASE TAB PO ONE (20:00)
[2017-06-08] MEDS ORDERED: SENNOSIDES 8.6 MG TAB PO PRN (20:00)
[2017-06-08] MEDS ORDERED: SODIUM CHLORIDE 0.9% FLUSH 10 ML FLUSH IV FLUSH PRN (20:00)
[2017-06-08] MEDS ORDERED: MECLIZINE HCL 25 MG TAB PO PRN (20:00)
[2017-06-08] MEDS ORDERED: ONDANSETRON HCL 4 MG/2 ML VIAL IVP PRN (20:00)
--- NOTE | 2017-06-08 20:12 | HHI.HP ---
HPI [facility] Primary Care Physician Unknown Admission Diagnosis neurological symptoms Chief Complaint: visual disturbance since sunday with unsteady gait and dizziness Travel History International Travel<30 Days: No Contact w/Intl Traveler <30 Da: No Traveled to Known Affected Are: No History of Present Illness 52-year-old female presents to the emergency department sent by her primary care physician for further evaluation. Patient states that on sunday about3 days ago, she started with unsteady gait, fluttering of the eyes and visual changes. Patient states that this morning around 6:30 she started with a headache that has radiated to the right side of the head. She did have some head pain. She states it started gradually and has worsened. She denies any history of headaches,other then hitting head in summer by accident preping for colonoscopy.. Patient states that she has fluttering of her vision which is abnormal for her. She denies any chest pain. She reports chronic abdominal pain and nausea after having colon cancer removed in March. She states they got all of the cancer and she is now cancer free. She denies any chest pain or shortness of breath. Patient states her gait is unsteady. She does report history of vertigo, but states these symptoms are different. Moderate severity. She states that she took her medication for vertigo which did not help her symptoms. No exacerbating or alleviating symptoms. Patient will be admitted to observation pending mri scan . Patient does have allergy to contrast dye in form of slight rash to face. Patient currently is on BRAT diet as she has been having her chronic nausea ,lab work did show slight decrease in potassium. Review of Systems Constitutional: COMPLAINS OF: Dizziness Eyes: COMPLAINS OF: Photosensitivity Neurologic: COMPLAINS OF: Abnormal gait Past Family Social History Past Medical History cancer colon s/p surgery 03/25 vertigo uses meclizine prn thyroid abnormality followed by pcp and endocrine Past Surgical History colon surgery,partial hysterectomy Reported Medications none Allergies: Uncoded Allergies: dye (Allergy, Unknown, rashes , 06/08/17) Social History NS,ND Physical Exam Vital Signs Vital Signs Date Time Temp Pulse Resp B/P (MAP) Pulse Ox O2 Delivery O2 Flow Rate FiO2 06/08/17 19:17 71 15 99 06/08/17 19:16 71 18 116/73 (87) 99 Room Air 06/08/17 18:09 89 18 124/75 (91) 99 Room Air 06/08/17 16:56 Room Air 06/08/17 16:12 98.9 91 18 139/68 (91) 99 Room Air Physical Exam GENERAL: This is a well-nourished, well-developed patient, in no apparent distress. SKIN: No rashes, ecchymoses or lesions. Cool and dry. HEAD: Atraumatic. Normocephalic. No temporal or scalp tenderness. EYES: Pupils equal round and reactive. Extraocular motions intact. No scleral icterus. No injection or drainage. ENT: Nose without bleeding, purulent drainage or septal hematoma. Throat without erythema, tonsillar hypertrophy or exudate. Uvula midline. Airway patent. NECK: Trachea midline. No JVD or lymphadenopathy. Supple, nontender, no meningeal signs. CARDIOVASCULAR: Regular rate and rhythm without murmurs, gallops, or rubs. RESPIRATORY: Clear to auscultation. Breath sounds equal bilaterally. No wheezes , rales, or rhonchi. GASTROINTESTINAL: Abdomen soft, non-tender, nondistended. No hepato-splenomegaly , or palpable masses. No guarding. MUSCULOSKELETAL: Extremities without clubbing, cyanosis, or edema. No joint tenderness, effusion, or edema noted. No calf tenderness. Negative Homans sign bilaterally. NEUROLOGICAL: Awake and alert. Cranial nerves II through XII intact. Motor and sensory grossly within normal limits. Five out of 5 muscle strength in all muscle groups. Normal speech. poor finger to nose rt side Laboratory Laboratory Tests Test 06/08/17 17:30 White Blood Count 7.7 Red Blood Count 4.52 Hemoglobin 13.3 Hematocrit 39.5 Mean Corpuscular Volume 87.3 Mean Corpuscular Hemoglobin 29.4 Mean Corpuscular Hemoglobin Concent 33.7 Red Cell Distribution Width 13.9 Platelet Count 275 Mean Platelet Volume 7.9 Neutrophils (%) (Auto) 57.5 Lymphocytes (%) (Auto) 25.1 Monocytes (%) (Auto) 6.0 Eosinophils (%) (Auto) 10.8 Basophils (%) (Auto) 0.6 Neutrophils # (Auto) 4.4 Lymphocytes # (Auto) 1.9 Monocytes # (Auto) 0.5 Eosinophils # (Auto) 0.8 Basophils # (Auto) 0.0 CBC Comment DIFF FINAL Differential Comment Prothrombin Time 10.5 Prothromb Time International Ratio 1.0 Activated Partial Thromboplast Time 25.7 Blood Urea Nitrogen 11 Creatinine 0.65 Random Glucose 146 Total Protein 8.2 Albumin 3.9 Calcium Level 9.4 Alkaline Phosphatase 88 Aspartate Amino Transf (AST/SGOT) 17 Alanine Aminotransferase (ALT/SGPT) 22 Total Bilirubin 0.3 Sodium Level 141 Potassium Level 3.4 Chloride Level 105 Carbon Dioxide Level 31.6 Anion Gap 4 Estimat Glomerular Filtration Rate 95 Total Creatine Kinase 36 Troponin I LESS THAN 0.02 Thyroid Stimulating Hormone 3rd Gen 0.633 Result Diagram: 06/08/17 1730 06/08/17 173 Imaging Last [address] 06/08/17 1705 Signed Impressions: Service Date/Time: Thursday, June 08, 2017 17:55 - CONCLUSION: Normal examination. Igor Hansen MD Course in er received compazine ,meclizine,benadryl for head pain and nausea Caprini VTE Risk Assessment Caprini VTE Risk Assessment: No/Low Risk (score <= 1) Caprini Risk Assessment Model Point Value = 1 Point Value = 2 Point Value = 3 Point Value = 5 Age 41-60 Minor surgery BMI > 25 kg/m2 Swollen legs Varicose veins or History of unexplained or recurrent spontaneous Oral contraceptives or hormone replacement Sepsis (< 1 month) Serious lung disease, including pneumonia (< 1 month) Abnormal pulmonary function Acute myocardial infarction Congestive heart failure (< 1 month) History of inflammatory bowel disease Medical patient at bed rest Age 61-74 Arthroscopic surgery Major open surgery (> 45 min) Laparoscopic surgery (> 45 min) Malignancy Confined to bed (> 72 hours) Immobilizing plaster cast Central venous access Age >= 75 History of VTE Family history of VTE Factor V Leiden Prothrombin [id number] Lupus anticoagulant Anticardiolipin antibodies Elevated serum homocysteine Heparin-induced thrombocytopenia Other congenital or acquired thrombophilia Stroke (< 1 month) Elective arthroplasty Hip, pelvis, or leg fracture Acute spinal cord injury (< 1 month) Prophylaxis Regimen Total Risk Factor Score Risk Level Prophylaxis Regimen 0-1 Low Early ambulation 2 Moderate Order ONE of the following: *Sequential Compression Device (SCD) *Heparin 5000 units SQ BID 3-4 Higher Order ONE of the following medications: *Heparin 5000 units SQ TID *Enoxaparin/Lovenox 40 mg SQ daily (WT < 150 kg, CrCl > 30 mL/min) *Enoxaparin/Lovenox 30 mg SQ daily (WT < 150 kg, CrCl > 10-29 mL/min) *Enoxaparin/Lovenox 30 mg SQ BID (WT < 150 kg, CrCl > 30 mL/min) AND/OR *Sequential Compression Device (SCD) 5 or more Highest Order ONE of the following medications: *Heparin 5000 units SQ TID (Preferred with Epidurals) *Enoxaparin/Lovenox 40 mg SQ daily (WT < 150 kg, CrCl > 30 mL/min) *Enoxaparin/Lovenox 30 mg SQ daily (WT < 150 kg, CrCl > 10-29 mL/min) *Enoxaparin/Lovenox 30 mg SQ BID (WT < 150 kg, CrCl > 30 mL/min) AND *Sequential Compression Device (SCD) Assessment and Plan Problem List: (1) Neurological abnormality ICD Codes: R29.818 - Other symptoms and signs involving the nervous system Status: Acute Plan: will obtain MRI brain MRA carotids and neuro consult TSH and lab work normal except potassium was 3.4 will give potassium and recheck Assessment and Plan further plan as case develops and results MRI back ekg normal Code Status full Discussed Condition With patient Cedrick Yun MD Jun 08, 2017 20:12
[2017-06-08] MEDS: DOCUSATE SODIUM 50 MG/SENNA 8.6 MG TAB PO SCH (21:00)
[2017-06-08 21:36] VITALS: BP 100/58; PULSE 72; RESP 16; TEMP 98; O2SAT 98
[2017-06-08] MEDS: SODIUM CHLORIDE 0.9% FLUSH 10 ML FLUSH IV FLUSH SCH (22:15)
[2017-06-08 23:55] VITALS: BP 96/55; PULSE 83; RESP 17; TEMP 98.1; O2SAT 95
[2017-06-09] VITALS (7 sets, daily range): BP systolic 89–124; BP diastolic 51–68; PULSE 66–80; RESP 17–22; TEMP 97.6–98; O2SAT 95–98
[2017-06-09] MEDS ORDERED: GADODIAMIDE PF 287 MG/ML 20 ML VIAL (for RAD MRI) IVCONTRAST ONE (07:39)
[2017-06-09 07:42] LABS: BICARBONATE 27.1 MEQ/L (21.0-32.0); POTASSIUM 3.9 MEQ/L (3.5-5.1)
--- NOTE | 2017-06-09 08:19 | RADRPT ---
EXAM DATE/TIME: 06/09/2017 07:34 [facility] COMPARISON: CT BRAIN W/O CONTRAST, June 08, 2017, 17:55. INDICATIONS : Cephalgia. Visual disturbances. Dizziness. CONTRAST: 12 cc Omniscan (gadodiamide) IV MEDICAL HISTORY : Carcinoma, colon. Vertigo. SURGICAL HISTORY : Colon resection. Hysterectomy. ENCOUNTER: Initial ACUITY: 2 day PAIN SCORE: 0/10 LOCATION: cranial TECHNIQUE: Multiplanar, multisequence MRI of the brain was performed both prior to and following the administrat ion of paramagnetic contrast. FINDINGS: CEREBRUM: The ventricles are normal for age. No evidence of midline shift, mass lesion, hemorrhage or acute in farction. No extraaxial fluid collections are seen. The pituitary gland and suprasellar cistern are normal in configuration. WHITE MATTER: No significant signal abnormalities are seen in the white matter. POSTERIOR FOSSA: The cerebellum and brainstem are intact. The 4th ventricle is midline. The cerebellopontine angle is unremarkable. The cerebellar tonsils are normal in position. DIFFUSION IMAGING: No focal areas of restricted diffusion are seen. No evidence of acute infarction. EXTRACRANIAL: The visualized portions of the orbits and paranasal sinuses are unremarkable. POST-CONTRAST: No abnormal areas of parenchymal or dural enhancement. No evidence of blood-brain barrier breakdown. CONCLUSION: Normal MRI brain. Russell Gill MD on June 09, 2017 at 8:11 Board Certified Radiologist. This report was verified electronically.
--- NOTE | 2017-06-09 08:59 | RADRPT ---
EXAM DATE/TIME: 06/09/2017 07:34 [facility] COMPARISON: No previous studies available for comparison. INDICATIONS : Dizziness. Cephalgia, Visual disturbances. CONTRAST: 12 cc Omniscan (gadodiamide) IV MEDICAL HISTORY : Carcinoma, colon. Vertigo. SURGICAL HISTORY : Hysterectomy. Colon resection. ENCOUNTER: Initial ACUITY: 2 day PAIN SCORE: 0/10 LOCATION: cranial Percent stenosis is calculated using the diameter of the stenotic region over the diameter of the nor mal distal internal carotid artery. TECHNIQUE: Bolus infused MRA of the extracranial circulation was performed using a neurovascular coil. Post pro cessing was performed including rotating subvolume maximum intensity projections of each carotid kash ry, rotating full volume maximum intensity projections of both carotid arteries, sagittal and coronal sliding thin slab reformations of each carotid artery, and left oblique sliding thin slab reformatio n through the aortic arch to include the origin of the arch branch vessels. FINDINGS: AORTIC ARCH: There is a three vessel origin of the great vessels from the aorta. No evidence of ostial narrowing. RIGHT CAROTID: The common carotid artery is intact. The carotid bulb has a normal configuration without ulceration or narrowing. The internal carotid artery lumen is smooth without stenosis. The external carotid ar markos is intact. LEFT CAROTID: The common carotid artery is intact. The carotid bulb has a normal configuration without ulceration or narrowing. The internal carotid artery lumen is smooth without stenosis. The external carotid ar markos is intact. VERTEBRALS: The vertebral arteries have a symmetric diameter. No stenotic lesions are seen. CONCLUSION: 1. Normal carotid arteries. Russell Gill MD on June 09, 2017 at 8:56 Board Certified Radiologist. This report was verified electronically.
[2017-06-09] MEDS ORDERED: ACETAMINOPHEN 325 MG TAB PO PRN (09:00)
[2017-06-09] MEDS: DOCUSATE SODIUM 50 MG/SENNA 8.6 MG TAB PO SCH (09:00)
[2017-06-09] MEDS ORDERED: ACETAMINOPHEN/HYDROcodone 325 MG/5 MG TAB PO PRN (09:00)
[2017-06-09] MEDS ORDERED: LACTOBACILLUS ACIDOPHILUS TAB PO SCH (09:00)
[2017-06-09] MEDS: SODIUM CHLORIDE 0.9% FLUSH 10 ML FLUSH IV FLUSH SCH (09:45)
--- NOTE | 2017-06-09 11:11 | RADRPT ---
EXAM DATE/TIME: 06/09/2017 10:33 [facility] COMPARISON: No previous studies available for comparison. INDICATIONS : Cephalgia. Dizziness. MEDICAL HISTORY : Carcinoma, colon. SURGICAL HISTORY : Colon resection. Hysterectomy. ENCOUNTER: Initial ACUITY: 1 day PAIN SCORE: 5/10 LOCATION: cranial Please note a normal MRA of the brain does not entirely exclude the possibility of a small aneurysm, nor the possibility of distal intracranial vessel disease. TECHNIQUE: 3D time of flight MRA was performed. Source images, multiplanar STS MIP, and 3D volume MIP reconstru ctions were reviewed. FINDINGS: There is excellent visualization of the major intracranial arteries out to the second-order branch ve ssels. There is no evidence for aneurysm, vessel truncation or stenosis, and no evidence for vascula r malformation. Anterior commuting artery noted. Posterior indicating arteries not seen. Vertebral ba silar junction normal. CONCLUSION: No aneurysm or stenosis. Russell Gill MD on June 09, 2017 at 11:07 Board Certified Radiologist. This report was verified electronically.
--- NOTE | 2017-06-09 12:21 | HHI.PR ---
Subjective Remarks Pt admitted with c/o TERESA and dizziness. Pt c/o continued TERESA today. Dizziness is somewhat improved and pt was able to ambulate to the BR, but she still feels like her balance is somewhat off. Objective Vitals Vital Signs Date Time Temp Pulse Resp B/P (MAP) Pulse Ox O2 Delivery O2 Flow Rate FiO2 06/09/17 08:13 97.9 66 20 103/57 (72) 98 06/09/17 04:18 100/63 (75) 06/09/17 04:01 70 06/09/17 03:21 98.0 73 17 89/51 (64) 95 06/09/17 00:04 80 06/08/17 23:55 98.1 83 17 96/55 (69) 95 06/08/17 21:42 06/08/17 21:36 98.0 72 16 100/58 (72) 98 06/08/17 19:17 71 15 99 06/08/17 19:16 71 18 116/73 (87) 99 Room Air 06/08/17 18:09 89 18 124/75 (91) 99 Room Air 06/08/17 16:56 Room Air 06/08/17 16:12 98.9 91 18 139/68 (91) 99 Room Air Result Diagram: 06/08/17 1730 06/09/17 0650 Imaging Last Impressions Neck Magnetic Resonance Angiography 06/09/17 0000 Signed Impressions: Service Date/Time: Friday, June 09, 2017 07:34 - CONCLUSION: 1. Normal carotid arteries. Russell Gill MD Head Magnetic Resonance Angiography 06/09/17 0000 Signed Impressions: Service Date/Time: Friday, June 09, 2017 10:33 - CONCLUSION: No aneurysm or stenosis. Russell Gill MD Brain MRI 06/09/17 0000 Signed Impressions: Service Date/Time: Friday, June 09, 2017 07:34 - CONCLUSION: Normal MRI brain. Russell Gill MD Head CT 06/08/17 1705 Signed Impressions: Service Date/Time: Thursday, June 08, 2017 17:55 - CONCLUSION: Normal examination. Igor Hansen MD Objective Remarks GENERAL: This is a well-nourished, well-developed patient, in no apparent distress. CARDIOVASCULAR: Regular rate and rhythm without murmurs, gallops, or rubs. RESPIRATORY: Clear to auscultation. Breath sounds equal bilaterally. No wheezes , rales, or rhonchi. GASTROINTESTINAL: Abdomen soft, non-tender, nondistended. Normal active bowel sounds MUSCULOSKELETAL: Extremities without clubbing, cyanosis, or edema. NEURO: Alert & Oriented x4 to person, place, time, situation. Moves all ext x4 Pt observed ambulating to the BR independently. biceps reflex 2/4 x b/l, patellar reflex 2/4 b/l A/P Problem List: (1) Neurological abnormality ICD Codes: R29.818 - Other symptoms and signs involving the nervous system Status: Acute Plan: - Pt's TERESA and dizziness are overall improved from admission - CT brain (06/08/17) --> NO acute abnormalities - MRI brain (06/09/17) --> no acute abnormalities - MRA brain (06/09/17) --> no acute abnormalities - MRA neck (06/09/17) --> no abnormalities - Case d/w Neurology, Dr. Oseguera. Pt okay for discharge - tylenol prn pain - case d/w Dr. Oseguera - per Dr. Oseguera, EEG did NOT show significant abnormality but he would like to repeat EEG in his office - NO driving until reevaluation by Dr. Oseguera - Neurology is recommending vestibular rehab for vertigo, Linden maneuver - Pt provided with prescription for Vestibular Rehab - f/u with Dr. Oseguera in 2-3 weeks. - see discharge orders (2) Increased ammonia level ICD Codes: R79.89 - Other specified abnormal findings of blood chemistry Plan: - ammonia level mildly elevated at 39 (06/09/17) - likely clinically insignificant - but, pt is to repeat BMP, Mag, LFTs, and ammonia level on 06/13/17 with results to pt's PCP Honorio Saenz DO Jun 09, 2017 12:21
[2017-06-09] MEDS ORDERED: MECL1TAB42 PO (12:24)
--- NOTE | 2017-06-09 12:26 | HHI.DCPOC ---
Discharge Care Plan Diagnosis: (1) Adenocarcinoma of colon (2) Neurological abnormality Goals to Promote Your Health * To prevent worsening of your condition and complications * To maintain your health at the optimal level Directions to Meet Your Goals Take your medications as prescribed Follow your dietary instruction Follow activity as directed Keep your appointments as scheduled Take your immunizations and boosters as scheduled If your symptoms worsen call your PCP, if no PCP go to Urgent Care Center or Emergency Room Smoking is Dangerous to Your Health. Avoid second hand smoke Call the 24-hour hour crisis hotline for domestic abuse at Honorio Saenz DO Jun 09, 2017 12:26
[2017-06-09 15:34] LABS: FREE T4 1.18 NG/DL (0.76-1.46)
--- NOTE | 2017-06-10 06:43 | MG ---
cc: RICHARD BENNETT MD Sex: F DATE OF STUDY: 06/09/2017 EEG. 17 DATE OF : 1965 HISTORY: History of vertigo of dizziness. DESCRIPTION: Posterior rhythm demonstrating 4-6 Hz activity with theta and delta overlay, 20-60 microvolts. Mild asymmetric left posterior temporal region slowing compared to the right side. Tiny phase reversals on that region, sharps around T3-T5. Attenuation slowing of background with transition into drowsy state followed by stage I, stage II sleep with the appearance of K complexes and spindles. Tiny spike T5, epoch 52, synchronous posterior rhythm. Rhythmic theta T5, epoch 90. Single lead EKG showing sinus rhythm. Reduced driving with photic stimulation. INTERPRETATION Nonspecific changes left temporal region, otherwise stable awake sleep EEG. Clinical correlation. Richard Bennett MD MG/ANGEL /11:46 PM /6:34 AM
--- NOTE | 2017-06-10 23:21 | EKG ---
Date Performed: 06/08/2017 Time Performed: 17:31:13 PTAGE: 52 years EKG: Sinus rhythm INCOMPLETE RIGHT BUNDLE BRANCH BLOCK BORDERLINE ECG PREVIOUS TRACING : 03/08/2017 13.47 Compared to prior tracing no significant change DOCTOR: Dariusz Anand Interpretating Date/Time 06/10/2017 23:20:21
== END 2017-06-09 17:28 | disposition home or self-care (01) ==
LOC: NEPC 16:11 → NEDA 18:32 → NEPHCDU 21:28
PROVIDERS: ADMIT Hospitalist; ATTEND Hospitalist
DX: R29.818 Other symptoms and signs involving the nervous system (principal); R26.81 Unsteadiness on feet; R42 Dizziness and giddiness; R51 Headache; I45.10 Unspecified right bundle-branch block; R03.1 Nonspecific low blood-pressure reading; R11.2 Nausea with vomiting, unspecified; R10.9 Unspecified abdominal pain; G89.29 Other chronic pain; Z85.038 Personal history of other malignant neoplasm of large intestine
CPT/HCPCS: 70450; 70544; 70548; 70553; 80048; 80053; 82140; 82550; 82607; 82746; 82948; 84439; 84443; 84484; 85025; 85610; 85730; 86592; 93005; 95819; 96374; 96375; 99285; A9579; G0378; J0780; J1200; J7030